=== PATIENT | female | born 1975 | race Caucasian/White ===

== ENCOUNTER → 2018-03-14 12:59 | Outpatient (CLI) | payer MEDICARE, OTHER, SELFPAY ==
--- NOTE | 2018-03-14 13:10 | MM_ITS ---
MM Dig mamm DX unilat LT CAD, US breast LT complete COMPARISON: 10/12/2017, 04/12/2016 INDICATION: Follow-up abnormal mammogram ORDERING PHYSICIAN: Rocio Castillo PATIENT AGE: 42 years TECHNIQUE: Problem-solving views performed along with left breast ultrasound FINDINGS: Present well-circumscribed 12 x 8 mm nodule in the central aspect of the left breast at the 12:00 region corresponding to the abdomen the noted on the screening study. No malignant appearing calcifications or spiculations. Left breast ultrasound: Isoechoic 12 x 7 mm nodule in the left o'clock region of the left breast corresponding to the mammographic abnormality. Probable fibroadenoma IMPRESSION: Probable fibroadenoma 12:00 region of the left breast. Suggest confirmation with biopsy BI-RADS Category: 4 Suspicious Abnormality-Biopsy Considered RECOMMENDED FOLLOW-UP: BIO - BIOPSY RECOMMENDED Suggest ultrasound guided mammotome biopsy (A letter has been sent to the patient regarding results of the study.)
== END ==
PROVIDERS: Family Provider Nurse Practitioner Family; PCP Nurse Practitioner Family; Visit Provider Nurse Practitioner Family
DX: R92.8 Other abnormal and inconclusive findings on diagnostic imaging of breast (principal)
CPT/HCPCS: 76641; 77065

== ENCOUNTER → 2018-05-13 09:39 | Outpatient (CLI) | payer MEDICARE, OTHER, SELFPAY ==
--- NOTE | 2018-05-13 10:04 | US_ITS ---
US mammotome bx LT US breast LT complete, MM Dig mamm DX unilat LT CAD INDICATION: Left breast nodule ORDERING PHYSICIAN: Rocio Castillo PATIENT AGE: 42 years COMPARISON: 03/14/2018 Left breast ultrasound: Left breast ultrasound performed for planning and localization for mammotome biopsy. Solid nodules once again noted at 11:00 near the nipple. TECHNIQUE: Following obtaining informed consent using sonographic guidance with local anesthesia with 1% buffered lidocaine and deeper anesthesia with 1% buffered lidocaine mixed with epinephrine a skin neck was performed and mammotomy needle inserted along the posterior aspect of the nodule. Multiple mammotomy biopsies were obtained . A nonferromagnetic clip was then placed. The patient tolerated the procedure well without evidence of immediate complications and left the radiology suite in stable condition Pathology: Fragments of a fibroadenoma. Negative for atypia or malignancy Left mammogram postbiopsy: Postbiopsy changes with Biopsy clip present in the retroareolar region. Previously noted nodule at the 11:00 region no longer evident with the biopsy clip in this region. IMPRESSION: Successful sonographic guided mammotome biopsy of the left breast showing fibroadenoma BI-RADS Category: 2 Benign Finding(s) RECOMMENDED FOLLOW-UP: 6M - 6 MONTH FOLLOW-UP (A letter has been sent to the patient regarding results of the study.)
== END ==
PROVIDERS: Family Provider Nurse Practitioner Family; PCP Nurse Practitioner Family; Visit Provider Nurse Practitioner Family
DX: R92.8 Other abnormal and inconclusive findings on diagnostic imaging of breast (principal)
CPT/HCPCS: 19083; 76641; 76942; 77065; 88305; C2618

== ENCOUNTER 2023-12-12 23:10 | Outpatient (CLI) | payer MEDICARE, OTHER, SELFPAY | END 2023-12-12 23:59 | PROVIDERS: PCP Family Medicine; Visit Provider Family Medicine | DX: R30.0 Dysuria (principal); B96.29 Other Escherichia coli [E. coli] as the cause of diseases classified elsewhere; B96.89 Other specified bacterial agents as the cause of diseases classified elsewhere | CPT/HCPCS: 87086 ==

== ENCOUNTER 2024-02-13 21:23 | Outpatient (CLI) | payer MEDICARE, OTHER, SELFPAY ==
[2024-02-13 16:38] LABS: Basophils # 0.1 K/mm3 (0-0.2); Basophils % 1.2 % (0.1-2.0); Eosinophils # 0.1 K/mm3 (0.0-0.4); Hematocrit 42.5 % (37.0-47.0); Lymphocytes # 4.4 K/mm3 (0.7-4.5); Lymphocytes % 36.6 % (10-50); Mean Platelet Volume 9.4 fl (7.4-10.4); Monocytes # 0.6 K/mm3 (0.1-1.0); Monocytes % 4.7 % (1.7-9.3); Neutrophils # 6.9 K/mm3 (1.8-7.8); Neutrophils % 56.6 % (37.0-80.0); Platelet Count 308 K/mm3 (142-424); Red Blood Count 4.67 M/mm3 (4.20-5.40); Red Cell Distribution Width 14.4 % (11.5-17.5); White Blood Count 12.1 K/mm3 (4.8-10.8)
[2024-02-13 16:50] LABS: Alanine Aminotransferase 17 U/L (12-78); Albumin/Globulin Ratio 1.6 (1.1-1.8); Alkaline Phosphatase 120 U/L (38-126); Anion Gap 9.4 mEq/L (5-15); Aspartate Amino Transferase 18 U/L (14-36); Bilirubin,Total 0.3 mg/dl (0.2-1.3); Blood Urea Nitrogen 13 mg/dl (7-17); Calcium 9.6 mg/dl (8.4-10.2); Carbon Dioxide 28 mmol/L (22.0-30.0); Chloride 104 mmol/L (98-107); Chol/HDL Ratio 4.1 (1-3.5); Cholesterol 167 mg/dl (140-200); Estimated Glomerular Filt Rate 89 ml/min (>60); GFR (African American) 107 ML/MIN (>60); Globulin 2.5 g/dL (1.3-3.2); Glucose 143 mg/dl (74-100); HDL Cholesterol 41 mg/dl (40-60); Potassium 4.4 mmoL/L (3.5-5.1); Sodium 137 mmol/L (136-145); Total Protein,Serum 6.5 g/dl (6.3-8.2); Triglycerides 168 mg/dl (30-150); VLDL Cholesterol 34 mg/dL (0-40)
[2024-02-13 17:01] LABS: Direct LDL Cholesterol 90.22 mg/dL (100-129)
[2024-02-13 17:45] LABS: Hemoglobin A1C 10.6 % (4.0-6.0)
== END 2024-02-13 23:59 ==
LOC: LAB.DROPOF 21:24
PROVIDERS: PCP Family Medicine; Visit Provider Family Medicine
DX: E11.9 Type 2 diabetes mellitus without complications (principal); I10 Essential (primary) hypertension; Z79.4 Long term (current) use of insulin; Z79.85 Long-term (current) use of injectable non-insulin antidiabetic drugs; Z72.0 Tobacco use
CPT/HCPCS: 80053; 80061; 83036; 84443; 85025

== ENCOUNTER 2024-07-17 13:41 | Outpatient (CLI) | payer MEDICARE, OTHER, SELFPAY ==
--- NOTE | 2024-07-17 13:46 | MM_ITS ---
PROCEDURE INFORMATION: Exam: MG Bilateral Screening 3D Mammography Exam date and time: 07/17/2024 1:51 PM Age: 48 years old Clinical indication: Screening. Her sister had breast cancer at age 40. TECHNIQUE: Imaging protocol: Bilateral Screening tomosynthesis and 2D mammography including computer-aided detection (CAD) when performed. COMPARISON: 1. MG DXLT MM Dig mamm DX unilat LT CAD 05/13/2018 11:42 AM 2. MG DXLT MM Dig mamm DX unilat LT CAD 03/14/2018 1:35 PM 3. MG MM MOBILE MAMMO DIGITAL SCREEN W CAD OPAL 10/12/2017 9:46 AM 4. MG DMSB DIG MAMM-SCREEN OPAL 04/12/2016 10:26 AM FINDINGS: MAMMOGRAPHY: Breast composition: There are scattered areas of fibroglandular density. Mass: No suspicious mass. Architectural distortion: None. Calcifications: No suspicious calcifications. Asymmetric density: None. Skin thickening: None. Axillary adenopathy: None. IMPRESSION: No mammographic evidence of malignancy. Annual screening is recommended unless otherwise clinically indicated. ASSESSMENT: BI-RADS Category 1: Negative.
== END 2024-07-17 23:59 | disposition home or self-care (01) ==
LOC: RAD 13:43
PROVIDERS: PCP Family Medicine; Visit Provider Family Medicine
DX: Z12.31 Encounter for screening mammogram for malignant neoplasm of breast (principal)
CPT/HCPCS: 77063; 77067

== ENCOUNTER 2024-12-07 09:00 | Outpatient (CLI) | payer MEDICARE, OTHER, SELFPAY ==
[2024-12-07 16:33] LABS: Basophils # 0.1 K/mm3 (0-0.2); Basophils % 0.5 % (0.1-2.0); Eosinophils # 0.1 K/mm3 (0.0-0.4); Eosinophils % 1.1 % (0.1-12.0); Hematocrit 44.4 % (37.0-47.0); Hemoglobin 14.2 g/dL (12.2-16.2); Lymphocytes % 37.9 % (10-50); Mean Corpuscular Hemoglobin 28.1 pg (27.0-31.2); Mean Corpuscular Volume 87.7 fl (81-99); Mean Platelet Volume 11.4 fl (7.4-10.4); Monocytes # 0.5 K/mm3 (0.1-1.0); Monocytes % 4.7 % (1.7-9.3); Neutrophils # 5.8 K/mm3 (1.8-7.8); Neutrophils % 55.2 % (37.0-80.0); Platelet Count 272 K/mm3 (142-424); Red Blood Count 5.06 M/mm3 (4.20-5.40); Red Cell Distribution Width 13.7 % (11.5-17.5); White Blood Count 10.6 K/mm3 (4.8-10.8)
[2024-12-07 17:42] LABS: Chloride 102 mmol/L (98-107); Sodium 138 mmol/L (136-145)
[2024-12-07 17:43] LABS: Potassium 4.1 mmoL/L (3.5-5.1)
[2024-12-07 17:45] LABS: Alanine Aminotransferase 23 U/L (12-78); Albumin/Globulin Ratio 1.7 (1.1-1.8); Alkaline Phosphatase 173 U/L (38-126); Anion Gap 16.1 mEq/L (5-15); Aspartate Amino Transferase 18 U/L (14-36); Bilirubin,Total 0.2 mg/dl (0.2-1.3); Blood Urea Nitrogen 17 mg/dl (7-17); Carbon Dioxide 24 mmol/L (22.0-30.0); Cholesterol 210 mg/dl (140-200); Estimated Glomerular Filt Rate 105 ml/min (>60); GFR (African American) 128 ML/MIN (>60); Globulin 2.4 g/dL (1.3-3.2); Total Protein,Serum 6.4 g/dl (6.3-8.2); Triglycerides 299 mg/dl (30-150); VLDL Cholesterol 60 mg/dL (0-40)
[2024-12-07 17:46] LABS: Calcium 9.1 mg/dl (8.4-10.2); Chol/HDL Ratio 6.6 (1-3.5); Glucose 293 mg/dl (74-100); HDL Cholesterol 32 mg/dl (40-60)
[2024-12-07 17:59] LABS: Direct LDL Cholesterol 135.45 mg/dL (100-129)
[2024-12-07 18:20] LABS: Thyroid Stimulating Hormone 3.85 uIU/mL (0.465-4.68)
[2024-12-07 18:29] LABS: HIV Combo NEGATIVE (Negative)
[2024-12-07 18:35] LABS: Hepatitis C Ab Qual. W/ RFX NEGATIVE (Negative)
== END 2024-12-07 23:59 | disposition home or self-care (01) ==
LOC: LAB.DROPOF 12-08 09:03
PROVIDERS: PCP Family Medicine; Visit Provider Family Medicine
DX: E11.9 Type 2 diabetes mellitus without complications (principal); I10 Essential (primary) hypertension; Z11.59 Encounter for screening for other viral diseases; Z11.4 Encounter for screening for human immunodeficiency virus [HIV]
CPT/HCPCS: 80053; 80061; 83036; 84443; 85025; 86803; 87389

== ENCOUNTER 2024-12-24 00:21 | Emergency (ER) | payer MEDICARE, OTHER, SELFPAY ==
[2024-12-24 00:21] VITALS: BP 134/60; PULSE 94; RESP 18; TEMP 36.6; O2SAT 97; BMI 31.1
--- NOTE | 2024-12-24 00:30 | PC.NURSE ---
blood glucose reads HI
[2024-12-24] MEDS: LACTATED RINGERS 1000ML 1,000 ML 999 ML IV (00:59)
[2024-12-24 01:00] VITALS: BP 122/63; PULSE 82; O2SAT 95
[2024-12-24] MEDS: humaLOG 100 UNITS/ML 10ML VIAL (SSI) 20 UNIT SUBCUT (01:02)
[2024-12-24 01:07] LABS: Lactate Venous 1.6 mmol/L (0.4-2.0); VBG Base Excess -1.7 mmol/L (-2.4-2.3); VBG HCO3 24.1 mmol/L (23-30); VBG Oxygen Saturation 61.9 % (50-70); VBG PH 7.34 mmol/L (7.31-7.41); VBG PO2 30.6 mmol/L (28-40); VBG Total CO2 25.5 mmol/L (23-27)
[2024-12-24 01:12] LABS: Basophils # 0.1 K/mm3 (0-0.2); Basophils % 0.5 % (0.1-2.0); Eosinophils # 0.2 K/mm3 (0.0-0.4); Eosinophils % 1.5 % (0.1-12.0); Hematocrit 43.2 % (37.0-47.0); Hemoglobin 14.3 g/dL (12.2-16.2); Lymphocytes # 2.9 K/mm3 (0.7-4.5); Lymphocytes % 27.9 % (10-50); Mean Corpuscular HGB Conc 33.1 g/dL (31.8-35.4); Mean Corpuscular Hemoglobin 27.9 pg (27.0-31.2); Mean Corpuscular Volume 84.2 fl (81-99); Mean Platelet Volume 11.5 fl (7.4-10.4); Monocytes # 0.5 K/mm3 (0.1-1.0); Monocytes % 4.6 % (1.7-9.3); Neutrophils # 6.7 K/mm3 (1.8-7.8); Platelet Count 291 K/mm3 (142-424); Red Blood Count 5.13 M/mm3 (4.20-5.40); Red Cell Distribution Width 13.1 % (11.5-17.5); White Blood Count 10.3 K/mm3 (4.8-10.8)
[2024-12-24 01:15] VITALS: PULSE 81; O2SAT 94
[2024-12-24 01:19] LABS: Alanine Aminotransferase 31 U/L (12-78); Albumin Level 4.5 g/dl (3.5-5.0); Albumin/Globulin Ratio 1.7 (1.1-1.8); Alkaline Phosphatase 161 U/L (38-126); Anion Gap 15.7 mEq/L (5-15); Aspartate Amino Transferase 25 U/L (14-36); Bilirubin,Total 0.4 mg/dl (0.2-1.3); Blood Urea Nitrogen 16 mg/dl (7-17); Calcium 9.2 mg/dl (8.4-10.2); Carbon Dioxide 29 mmol/L (22.0-30.0); Chloride 93 mmol/L (98-107); Creatinine Clearance Estimated 81 mL/min (50-200); Estimated Glomerular Filt Rate 58 ml/min (>60); GFR (African American) 71 ML/MIN (>60); Globulin 2.6 g/dL (1.3-3.2); Lipase 532 U/L (23-300); Potassium 4.7 mmoL/L (3.5-5.1); Sodium 133 mmol/L (136-145); Total Protein,Serum 7.1 g/dl (6.3-8.2)
[2024-12-24 01:25] LABS: Microscopic, Urine URINE MICROSCOPIC (MICROSCOPIC)
--- NOTE | 2024-12-24 01:29 | HMH.EDGENADL ---
Discharge Plan Disposition Patient Disposition: Home, Self-Care Condition: Good Prescriptions Prescriptions: No Action cholecalciferol (vitamin D3) [Vitamin D3] 50 mcg (2,000 unit) capsule 50 mcg PO DAILY 30 Days Qty: 30 2RF fluoxetine 20 mg capsule 20 mg PO DAILY Qty: 30 2RF fluoxetine 40 mg capsule 40 mg PO DAILY Qty: 30 2RF ipratropium-albuterol 0.5 mg-3 mg(2.5 mg base)/3 mL solution for nebulization 3 ml inhalation Q8H PRN (Reason: COPD) 30 Days Qty: 90 2RF lisinopril-hydrochlorothiazide 10-12.5 mg tablet 1 tab PO DAILY 30 Days Qty: 30 2RF pantoprazole 40 mg tablet,delayed release (DR/EC) 40 mg PO DAILY Qty: 30 2RF rosuvastatin 40 mg tablet 40 mg PO DAILY Qty: 30 2RF Ozempic 1 mg/dose (4 mg/3 mL) pen injector 1 mg SQ WEEKLY Qty: 3 2RF (DME) Dexcom G7 Sensor Device See Rx Instructions .ROUTE .MEDSUPPLY Qty: 1 3RF Rx Instructions: As directed (DME) pen needle, diabetic [BD Ultra-Fine Mini Pen Needle] 31 gauge x 3/16 needle See Rx Instructions .ROUTE .COMPLEX Qty: 100 0RF Dose Instruction: USE TO INJECT INSULIN 3 TIMES EACH DAY DIRECTED Rx Instructions: USE TO INJECT INSULIN 3 TIMES EACH DAY DIRECTED alcohol swabs [Alcohol Prep Pads] Pads, Medicated 1 pad topical BID 30 Days Qty: 100 0RF mirtazapine 7.5 mg tablet 7.5 mg PO HS Qty: 30 0RF methocarbamol 750 mg tablet 750 mg PO TID Qty: 90 0RF insulin aspart U-100 [Novolog PenFill U-100 Insulin] 100 unit/mL cartridge 20 unit SQ BID Qty: 15 2RF levothyroxine 25 mcg tablet 25 mcg PO DAILY 30 Days Qty: 30 2RF insulin glargine [Lantus Solostar U-100 Insulin] 100 unit/mL (3 mL) insulin pen 40 unit SQ DAILY Qty: 15 2RF Referrals Follow up/Referrals: Tavo Lowry MD [Primary Care Provider] - See instructions (Please recheck patient FRANSICO for blood sugar, please also prescribe her lancets and glucometer since she has experienced Dexcom failure that landed her in the ER. Please also recheck lipase, it was elevated in the ER but patient was asymptomatic. Thank you!) Activity Restrictions/Add. Instructions Additional Instructions/Restrictions: You were evaluated in the ER and are appropriate for discharge at this time. When you get home, immediately change your Dexcom sensor and check your blood sugar. It should be close to what it most recently was in the ER. Manage your blood sugar according to recommendations from your primary care doctor. Call your primary care doctor first thing in the morning and make an appointment for immediate reevaluation. Ask him to prescribe you lancets and a glucometer to check your blood sugar at home in case your Dexcom ever fails again. Also ask him to recheck your pancreas since your enzyme was elevated. Return to the ER with new, worsening, or otherwise concerning symptoms. Clinical Impressions Clinical Impression: Hyperglycemia, Elevated lipase Print Language Print Language: [place] Discharge ED Provider: Chayo Vigil Adult HPI General Chief complaint: Recheck/Abnormal Lab/Rx Stated complaint: low blood sugar Time Seen by Provider: 12/24/24 00:35 Mode of Arrival: Ambulatory Source of Information: Patient Limitations: No Limitations Description of Symptoms (Recalled from ER Triage Doc. by RN): Patient reports her dexcom has been saying low since 2.2:30am. States she has been treating this with jelly, food etc at home. States it was 43 at 2200. However, upon checking a glucose at bedside on our monitor patients BG reads high . History of Present Illness HPI narrative: 49-year-old female with type 2 diabetes on insulin as well as history of COPD, hypertension, fibromyalgia presents to the ER for complaints of low blood sugar. Patient reports she has a Dexcom and that her unit was placed 2 days ago. She states since 2:30 AM on 12/23/2024 it has been reading low . She states she has been eating sugary foods at home including juice, jelly, etc. She states at 10 PM her Dexcom said her blood sugar was 43. She does not have any symptoms like lightheadedness, headache, numbness, tingling, weakness, chest pain, difficulty breathing, cough, congestion, nausea, vomiting, diarrhea, fevers, chills, dysuria, hematuria, or any other symptoms. She states she feels normal but is concerned about the low readings at home. On arrival to the ER, fingerstick blood glucose reads high . Patient reports she does not have lancets or glucometer at home so she is unable to confirm what her Dexcom says. She states typically she would take 60 units of Lantus every evening and typically takes 20 units of NovoLog if needed for correction of glucose above 300. She has not taken any insulin since her Dexcom started reading low. She has not experienced this previously. She reports no feelings of being sick or associated symptoms Related Data Previous Rx's ?Medication ?Instructions ?Recorded insulin aspart U-100 100 unit/mL 20 unit (0.2 mL) SQ BID #15 mL 03/23/24 subcutaneous cartridge (Novolog PenFill U-100 Insulin aspart) levothyroxine 25 mcg tablet 25 mcg PO DAILY hypothyroidism 30 08/05/24 days #30 tabs alcohol swabs (Alcohol Prep Pads) 1 pad topical BID 30 days #100 ea 12/07/24 blood-glucose sensor (Dexcom G7 #1 ea 12/07/24 Sensor device) cholecalciferol (vitamin D3) 50 50 mcg PO DAILY 30 days #30 caps 12/07/24 mcg (2,000 unit) capsule (Vitamin D3) fluoxetine 20 mg capsule 20 mg PO DAILY #30 caps 12/07/24 fluoxetine 40 mg capsule 40 mg PO DAILY Depression #30 caps 12/07/24 insulin glargine 100 unit/mL (3 40 unit (0.4 mL) SQ DAILY Diabetes 12/07/24 mL) subcutaneous pen (Lantus #15 mL Solostar U-100 Insulin) ipratropium 0.5 mg-albuterol 3 mg 3 ml inhalation Q8H PRN COPD 30 12/07/24 (2.5 mg base)/3 mL nebulization days #90 mL soln lisinopril 10 1 tab PO DAILY HTN 30 days #30 tabs 12/07/24 mg-hydrochlorothiazide 12.5 mg tablet methocarbamol 750 mg tablet 750 mg PO TID fibromyalgia #90 tabs 12/07/24 mirtazapine 7.5 mg tablet 7.5 mg PO HS sleep #30 tabs 12/07/24 pantoprazole 40 mg tablet,delayed 40 mg PO DAILY GERD #30 tabs 12/07/24 release pen needle, diabetic 31 gauge x #100 ea 12/07/24/16 (BD Ultra-Fine Mini Pen Needle) rosuvastatin 40 mg tablet 40 mg PO DAILY hyperlipidemia #30 12/07/24 tabs semaglutide 1 mg/dose (4 mg/3 mL) 1 mg (0.75 mL) SQ WEEKLY #3 mL 12/07/24 subcutaneous pen injector (Ozempic) Allergies Allergy/AdvReac Type Severity Reaction Status Date / Time No Known Allergies Allergy Verified 12/07/24 08:33 [facility] Disclaimer: The information contained in this section may have been updated after the patient was seen, as this information can be updated by other users. Medical History Depression COPD (chronic obstructive pulmonary disease) Fibromyalgia Hyperlipidemia Hypertension Surgical History H/O hand surgery Family History Grandfather Cancer Father Diabetes Grandmother Coronary artery disease Heart attack Social History Smoking Status: Current every day smoker alcohol intake: never substance use type: marijuana current occupational status: disabled Travel in the last 8 weeks: Inside the [place] household members: spouse and children housing: house Have you lived/traveled outside [place] in past 30 days?: No Contact w/someone who lives/traveled outside US past 30 days?: No Exposure to someone with infectious disease in past 14 days?: No Do you have a fever (greater than 100.4 F or 38 C)?: No Have you tested positive for COVID-19: No Exposed to someone with COVID-19 in past 14 days?: No Do you have a sore throat?: No Do you have a cough?: No Do you have any weakness?: No Do you have any diarrhea?: No Are you experiencing any unusual bleeding?: No Do you have any muscle aches/pain?: No Do you have any abdominal pain?: No Are you experiencing loss of taste or smell?: No Other Medical History Have you received the Pneumonia Vaccine: No ROS Obtained: Yes Systems reviewed as appropriate & no additional complaints except as documented Per HPI Physical Exam General General appearance: alert and in no apparent distress Head Head exam: atraumatic and normocephalic Eye Eye exam: Present PERRL and EOMI ENT ENT exam: Present mucous membranes moist Neck Neck exam: Present normal inspection and full ROM Chest Chest inspection: Present symmetric chest wall rise Respiratory Respiratory exam: Present normal lung sounds bilaterally; Absent respiratory distress, wheezes or stridor Cardiovascular Cardiovascular exam: Present regular rate and normal rhythm Abdominal Exam Abdominal exam: Present soft; Absent distention, tenderness, guarding or rebound Comment: Benign abdomen Extremities Exam Extremities exam: Present full ROM; Absent edema Neurological Exam Neurological exam: Present alert and oriented X3; Absent motor sensory deficit Psychiatric Psychiatric exam: Present normal affect and normal mood Skin Skin exam: Present warm and dry Medical Decision Making Medical Records Medical records reviewed: Yes I reviewed the patient's medical records. Screening: Per USPSTF and CDC recommendations, given the prevalence of disease in our region, it is our hospital?s policy to screen for HIV and viral Hepatitis for all patients aged 18 and over and those with ongoing risk factors. MR Comment: Most recent visit with Dr. Lowry on 12/07/2024 was reviewed by me. She reportedly presented for medication refill. He ordered basic outpatient labs and refilled home meds. A1c at that time was 12.0 and blood glucose 293. Basilio Inquiry Pt receiving controlled substance: No Vital Signs: 12/24/24 00:21 12/24/24 01:00 12/24/24 01:15 Temperature 97.9 F Temperature Source Oral Pulse Rate 82 81 Pulse Rate [Right Radial] 94 H Respiratory Rate 18 Blood Pressure 122/63 Blood Pressure [Right Arm] 134/60 Blood Pressure Mean [Right Arm] 84 Blood Pressure Source Blood Pressure Source [Right Arm] Automatic Cuff Blood Pressure Position Blood Pressure Position [Right Arm] Supine 02 Sat by Pulse Oximetry 97 95 94 L Oxygen Delivery Method Room Air 12/24/24 02:01 12/24/24 02:14 Temperature 97.9 F Temperature Source Oral Pulse Rate 83 72 Pulse Rate [Right Radial] Respiratory Rate 16 Blood Pressure 122/64 120/88 Blood Pressure [Right Arm] Blood Pressure Mean [Right Arm] Blood Pressure Source Automatic Cuff Blood Pressure Source [Right Arm] Blood Pressure Position Supine Blood Pressure Position [Right Arm] 02 Sat by Pulse Oximetry 99 Oxygen Delivery Method Room Air Lab Data Lab Results 12/24/24 00:56: WBC 10.3, RBC 5.13, Hgb 14.3, Hct 43.2, MCV 84.2, MCH 27.9, MCHC 33.1, RDW 13.1, Plt Count 291, MPV 11.5 H, Neut % (Auto) 65.0, Lymph % (Auto) 27.9, [place] % (Auto) 4.6, Eos % (Auto) 1.5, Baso % (Auto) 0.5, Neut # (Auto) 6.7, Lymph # (Auto) 2.9, [place] # (Auto) 0.5, Eos # (Auto) 0.2, Baso # (Auto) 0.1, Sodium 133 L, Potassium 4.7, Chloride 93 L, Carbon Dioxide 29, Anion Gap 15.7 H, BUN 16, Creatinine 1.00, Estimated Creat Clear 81, Estimated GFR 58 L, Est GFR ( Amer) 71, Glucose 620 H*, Calcium 9.2, Total Bilirubin 0.4, AST 25, ALT 31, Alkaline Phosphatase 161 H, Total Protein 7.1, Albumin 4.5, Globulin 2.6, Albumin/Globulin Ratio 1.7, Lipase 532 H, Acetone Level None detected 12/24/24 01:07: VBG pH 7.34, VBG pCO2 46.0, VBG pO2 30.6, VBG HCO3 24.1, VBG Total CO2 25.5, VBG O2 Saturation 61.9, VBG Base Excess -1.7, VBG Lactic Acid 1.6 12/24/24 01:20: Urine Color Yellow, Urine Appearance Clear, Urine pH 6.0, Ur Specific [place] 1.010, Urine Protein Negative, Urine Glucose (UA) 3+, Urine Ketones Negative, Urine Blood Negative, Urine Nitrate Negative, Urine Bilirubin Negative, Urine Urobilinogen 0.2, Ur Leukocyte Esterase Negative, Urine WBC Occasional, Ur Squamous Epith Cells Occasional, Urine Bacteria Trace 12/24/24 00:56 12/24/24 00:56 Orders (Tests/Meds): ED MEDICATIONS Discontinued Medications Generic Name Dose Route Start Last Admin Trade Name Freq PRN Reason Stop Dose Admin Lactated Ringer's 1,000 mls @ 999 mls/hr 12/24/24 00:43 12/24/24 00:59 Lactated Ringer's 1000 Ml Bag IV 12/24/24 01:43 999 mls/hr .Q1H1M ONE Administration Insulin Glargine 60 unit 12/24/24 21:00 Insulin Glargine 100 Units/Ml 10ml Vial SUBCUT 01/23/25 20:59 HS HECTOR Insulin Glargine 60 unit 12/24/24 01:29 12/24/24 01:31 Insulin Glargine 100 Units/Ml 10ml Vial SUBCUT 12/24/24 01:30 60 unit ONCE ONE Administration Insulin Human Lispro 20 unit 12/24/24 00:56 12/24/24 01:02 Humalog 100 Units/Ml 10ml Vial (Ssi) SUBCUT 12/24/24 00:57 20 unit ONCE ONE Administration ORDERS Category Date Time Status Acetone, Serum (Rapid) Stat Lab 12/24/24 00:56 Completed CBC w/Auto Diff [Complete Blood Count Auto Diff] Stat Lab 12/24/24 00:56 Completed CMP [Comprehensive Metabolic Panel] Stat Lab 12/24/24 00:56 Completed Lipase Stat Lab 12/24/24 00:56 Completed Urinalysis and Microscopic Stat Lab 12/24/24 01:20 Completed VBG [Venous Blood Gas] Stat RT 12/24/24 01:07 Completed Medical Decision Narrative: In summary, this 49-year-old female with comorbidities described in the HPI most notably type 2 diabetes not at goal therapy presents to the emergency department today with concerns of hypoglycemia. On initial evaluation patient is hemodynamically stable, afebrile, well-appearing, she is actually significantly hyperglycemic with initial fingerstick blood glucose in the ER reading high . She has a completely benign exam with no complaints other than concerned about her Dexcom readings.. Differential diagnosis includes but is not limited to Dexcom failure, hypoglycemia, hyperglycemia, other metabolic derangement including acidosis, DKA, HHS, kidney dysfunction, urinary tract infection, pancreatitis. Based on these concerns, I ordered serum labs, urine studies, VBG. Patient received IV fluids, Lantus, NovoLog initial for treatment of hyperglycemia. Labs personally reviewed demonstrate reassuring nonactionable CBC, VBG with pH 7.34, lactic on VBG 1.6, her VBG is normal. CMP with hyponatremia likely related to her significant hyperglycemia, patient is receiving IV fluids and insulin as indicated, she has trace elevation of anion gap but no acidosis on VBG and her acetone is not detected, she does not have evidence of DKA, reassured against HHS since patient does not have altered mental status, BUN and creatinine are normal, no evidence of volume depletion, her lipase is elevated at 532 which would typically be concerning for pancreatitis, however patient does not have any pain, nausea, vomiting, or other abdominal symptoms. UA negative for findings of infection. After receiving initial interventions, patient is having improved blood glucose. Recheck initially was 554. Recheck approximately 30 minutes after that demonstrated blood glucose 501. She is downtrending appropriately. She continues to rest comfortably, be asymptomatic. I discussed her labs with her and she is reassured. She would like to be discharged which I believe is reasonable. I discussed that it is very important for her to continue to drink fluids at home and to immediately exchange her Dexcom sensor when she gets home. She is going to do this and monitor her sugar this way. I explained to her that she needs to call her primary care doctor immediately in the morning for follow-up of her pancreatic enzymes as well as to recheck labs and reassess her pancreas as well as be prescribed lancets and glucometer to verify her Dexcom readings if they are significantly out of range. She agrees with this. I also sent a note to Dr. Lowry, her PCP, via the EHR regarding these things. Patient was given instructions on symptomatic monitoring and management, follow up instructions, and return precautions for the emergency department. Patient indicated understanding and was discharged in stable condition. Critical Care Critical Care Time Critical Care Time: No
[2024-12-24 01:30] LABS: Appearance,Urine CLEAR (Clear); Bilirubin,Urine Negative (Negative); Blood, Urine Negative (Negative); Color,Urine YELLOW (Yellow); Glucose,Urine (UA) 3+ (Negative); Ketones,Urine Negative (Negative); Leukocyte Esterase,Urine Negative (Negative); Nitrate,Urine Negative (Negative); Protein,Urine Negative (Negative); Urobilinogen,Urine 0.2 EU/dl (0.2)
[2024-12-24 01:31] LABS: Glucose 620 mg/dl (74-100)
[2024-12-24] MEDS: INSULIN GLARGINE 100 UNITS/ML 10ML VIAL 60 UNIT SUBCUT (01:31)
--- NOTE | 2024-12-24 01:32 | PC.NURSE ---
lab called with critical glucose of 620
[2024-12-24 01:38] LABS: Acetone, Serum (Rapid) None Detected (None Detect)
--- NOTE | 2024-12-24 01:46 | PC.NURSE ---
Patients glucose 554
[2024-12-24 01:48] LABS: Bacteria,Urine Trace /lpf; Squamous Epithelial Cell,Urine Occasional #/hpf (0-5); WBC,Urine Occasional #/hpf (0-3)
[2024-12-24 02:01] VITALS: BP 122/64; PULSE 83; O2SAT 99
--- NOTE | 2024-12-24 02:09 | PC.NURSE ---
Patient glucose 501; notified
--- NOTE | 2024-12-24 02:09 | PC.NURSE ---
Rounding done on patient; resting
[2024-12-24 02:14] VITALS: BP 120/88; PULSE 72; RESP 16; TEMP 36.6; O2SAT 98
== END 2024-12-24 02:18 | disposition home or self-care (01) ==
PROVIDERS: Emergency Provider Emergency Medicine; PCP Family Medicine
DX: E11.65 Type 2 diabetes mellitus with hyperglycemia (principal); R74.8 Abnormal levels of other serum enzymes; Z72.0 Tobacco use; Z79.4 Long term (current) use of insulin
CPT/HCPCS: 80053; 81001; 82009; 82803; 83690; 85025; 96360; 96361; 96372; 99283; J7120

== ENCOUNTER 2025-01-07 15:42 | Outpatient (CLI) | payer MEDICARE, SELFPAY ==
[2025-01-07 19:36] LABS: Lipase 867 U/L (23-300)
== END 2025-01-07 23:59 | disposition home or self-care (01) ==
LOC: LAB.DROPOF 01-08 13:35
PROVIDERS: PCP Family Medicine; Visit Provider Family Medicine
DX: R74.8 Abnormal levels of other serum enzymes (principal)
CPT/HCPCS: 83690

== ENCOUNTER 2025-04-02 10:41 | Outpatient (CLI) | payer MEDICARE, SELFPAY ==
[2025-04-02 16:36] LABS: Basophils # 0.1 K/mm3 (0-0.2); Basophils % 0.6 % (0.1-2.0); Eosinophils # 0.2 Kmm3 (0.0-0.4); Eosinophils % 1.6 % (0.1-12.0); Hematocrit 44.1 % (37.0-47.0); Hemoglobin 13.7 g/dL (12.2-16.2); Immature Granulocytes # 0.04 10^3uL; Immature Granulocytes % 0.4 %; Lymphocytes # 4.8 K/mm3 (0.7-4.5); Lymphocytes % 46.9 % (10-50); Mean Corpuscular HGB Conc 31.1 g/dL (31.8-35.4); Mean Corpuscular Hemoglobin 27.5 pg (27.0-31.2); Mean Corpuscular Volume 88.4 fl (81-99); Monocytes # 0.6 K/mm3 (0.1-1.0); Monocytes % 5.5 % (1.7-9.3); Neutrophils # 4.6 K/mm3 (1.8-7.8); Nucleated Red Blood Cells # 0 10^3/uL; Nucleated Red Blood Cells % 0 %; Platelet Count 255 K/mm3 (142-424); Red Blood Count 4.99 M/mm3 (4.20-5.40); Red Cell Distribution Width 13.9 % (11.5-17.5); Red Cell Distribution Width-SD 44.1 fL; White Blood Count 10.3 K/mm3 (4.8-10.8)
[2025-04-02 16:54] LABS: Microalbumin/Creatinine Ratio 57.7
[2025-04-02 16:56] LABS: Creatinine,Urine Random 101 mg/dL (Not Estab.)
[2025-04-02 17:09] LABS: Hemoglobin A1C 12.6 % (4.0-6.0)
[2025-04-02 17:22] LABS: Alanine Aminotransferase 16 U/L (12-78); Albumin Level 3.9 g/dl (3.5-5.0); Albumin/Globulin Ratio 1.8 (1.1-1.8); Alkaline Phosphatase 116 U/L (38-126); Amylase 58 U/L (30-110); Anion Gap 9.7 mEq/L (5-15); Aspartate Amino Transferase 16 U/L (14-36); Bilirubin,Total 0.3 mg/dl (0.2-1.3); Blood Urea Nitrogen 10 mg/dl (7-17); Calcium 8.9 mg/dl (8.4-10.2); Carbon Dioxide 27 mmol/L (22.0-30.0); Chloride 107 mmol/L (98-107); Cholesterol 148 mg/dl (140-200); Estimated Glomerular Filt Rate 130 ml/min (>60); GFR (African American) 157 ML/MIN (>60); Globulin 2.2 g/dL (1.3-3.2); Glucose 166 mg/dl (74-100); HDL Cholesterol 37 mg/dl (40-60); Lipase 141 U/L (23-300); Potassium 3.7 mmoL/L (3.5-5.1); Sodium 140 mmol/L (136-145); Total Protein,Serum 6.1 g/dl (6.3-8.2); Triglycerides 204 mg/dl (30-150); VLDL Cholesterol 41 mg/dL (0-40)
[2025-04-02 17:33] LABS: Direct LDL Cholesterol 86.94 mg/dL (100-129)
[2025-04-02 17:41] LABS: 25-OH Vitamin D, Total 16.8 ng/mL (30-100)
[2025-04-02 17:52] LABS: Thyroid Stimulating Hormone 0.95 uIU/mL (0.465-4.68)
--- OUTSIDE RECORDS SUMMARY | 2025-04-06 10:44 | XMS_ITS | Data Portability ---
Author Organization [facility] Address [address] [place] [address] Care Team Providers Care Painter Drum Name Role Phone ASHLEY DIETZ Primary Care Provider Assessment No assessment recorded. Plan of Treatment Reminders Order Date Submit Date Provider Last Modified By Organization Details Last Modified Time Details Appointments None recorded. Lab drug screen, 14 drugs (detectimed ), urine 2022 023 [facility], [address] [place] [address], [id number], 3 19:08:10 HbA1c (hemoglobin A1c), blood 2022 023 [facility], [address] [place] [address], [address], 3 07:13:40 CMP, serum or plasma 2022 023 [facility], [address] [place], [address], 3 07:13:39 CBC w/ auto diff 2022 023 [facility], [address] [place] [address], [id number], 3 07:13:38 lipid panel, [facility], [address] [place] [address], [address], 3 07:06:02 CMP, serum or plasma 2022 023 [email or web address] [facility], [place], [address], 3 07:06:02 CBC w/ auto diff 2022 023 [email or web address] [facility], [place], [address], 3 07:06:02 HbA1c (hemoglobin A1c), blood 2022 023 [email or web address] [facility], [place], [address], 3 07:06:02 TSH + free T4, serum 2022 023 [email or web address] [facility], [place], [address], 3 07:06:02 vitamin B12, serum 2022 023 [facility], [place], [address], 3 07:12:25 mma (methylmalo jacy acid), serum 2022 023 [email or web address], [place], [address], 3 07:20:07 vitamin D, 25-hydroxy, total, serum 2022 023 [facility], [place], [address], 3 07:12:24 CMP, serum or plasma 2022 023 [facility], [place], [address], 3 07:12:23 CBC w/ auto diff 2022 023 FRAKNI [facility], [place], [address], 3 07:12:22 HbA1c (hemoglobin A1c), blood 2022 023 [facility], [address] [place] [address], [address], 3 07:12:24 vitamin D, 25-hydroxy, total, serum 2022 023 [facility], [address] [place] [address], [address], 3 06:15:17 CMP, serum or plasma 2022 023 [facility], [address] [place] [address], [address], 3 06:15:15 CBC w/ auto diff 2022 023 [facility], [address] [place] [address], [address], 3 06:15:14 HbA1c (hemoglobin A1c), blood 2022 023 [facility], [address] [place] [address], [address], 3 06:15:16 Referral None recorded. Procedures None recorded. Surgeries None recorded. Imaging MAMMO, diagnostic, digital, bilateral 2022 023 [email or web address] [facility] ([facility]), [address], [place], [address], 3 07:56:38 Medication Orders zolpidem 10 mg tablet 2022 023 [facility], [address] [place] [address], [id number], 3 14:16:05 amitriptyli ne 50 mg tablet 2022 023 [facility], [address] [place] [address], [id number], 3 14:15:58 Lantus Solostar U-100 Insulin 100 unit/mL (3 mL) subcutaneou s pen 2022 023 [facility], [address] [place] [address], [id number], 3 14:16:06 Novolin 70-30 FlexPen U-100 Insulin 100 unit/mL (70-30) subcutaneou s 2022 023 [facility], [address] [place] [address], [id number], 3 12:59:39 Ozempic 1 mg/dose (4 mg/3 mL) subcutaneou s pen injector 2022 023 [facility], [address] [place] [address], [id number], 4 16:22:57 BD Alcohol Swabs 2022 023 [facility], [address] [place] [address], [id number], 4 13:44:55 pregabalin 200 mg capsule 2022 023 [facility], [address] [place] [address], [id number], 3 14:16:04 pantoprazol e 40 mg tablet,tete yed release 2022 023 [facility], [address] [place] [address], [id number], 3 14:16:05 rosuvastati n 40 mg tablet 2022 023 [facility], [address] [place] [address], [id number], 3 14:15:59 zolpidem 10 mg tablet 2022 023 [facility], [address] [place] [address], [id number], 3 17:34:49 amitriptyli ne 50 mg tablet 2022 023 [facility], [address] [place] [address], [id number], 3 12:42:43 pregabalin 200 mg capsule 2022 023 [facility], [address] [place] [address], [id number], 3 17:34:48 Mounjaro 2.5 mg/0.5 mL subcutaneou s pen injector 2022 023 [facility], [address] [place] [address], [id number], 3 17:02:03 Lantus Solostar U-100 Insulin 100 unit/mL (3 mL) subcutaneou s pen 2022 023 [facility], [address] [place] [address], [id number], 3 12:42:53 ipratropium 0.5 mg-albutero l 3 mg (2.5 mg base)/3 mL nebulizatio n soln 2022 023 [facility], [address] [place] [address], [id number], 3 16:50:41 bupropion HCl XL 150 mg 24 hr tablet, extended release 2022 023 [facility], [address] [place] [address], [id number], 3 14:16:04 fluoxetine 40 mg capsule 2022 023 [facility], [address] [place] [address], [id number], 3 14:16:00 fluoxetine 20 mg capsule 2022 023 [facility], [address] [place] [address], [id number], 3 12:42:51 Vraylar 1.5 mg capsule 2022 023 [facility], [address] [place] [address], [id number], 3 12:42:49 ergocalcife rol (vitamin D2) 1,250 mcg (50,000 unit) capsule 2022 023 [facility], [address] [place] [address], [id number], 3 14:16:09 lisinopril 10 mg-hydrochl orothiazide 12.5 mg tablet 2022 023 [facility], [address] [place] [address], [id number], 3 14:16:07 levothyroxi ne 25 mcg tablet 2022 023 [facility], [address] [place] [address], [id number], 3 14:16:10 zolpidem 10 mg tablet 2022 023 [facility], [address] [place] [address], [id number], 3 14:21:19 pregabalin 200 mg capsule 2022 023 [facility], [address] [place] [address], [id number], 3 14:21:19 ergocalcife rol (vitamin D2) 1,250 mcg (50,000 unit) capsule 2022 023 [facility], [address] [place] [address], [id number], 3 14:11:35 Lantus Solostar U-100 Insulin 100 unit/mL (3 mL) subcutaneou s pen 2022 023 [facility], [address] [place] [address], [id number], 3 14:11:34 Alcohol Prep Pads 2022 023 [facility], [address] [place] [address], [id number], 3 14:11:34 bupropion HCl XL 150 mg 24 hr tablet, extended release 2022 023 [facility], [address] [place] [address], [id number], 3 10:31:26 pregabalin 200 mg capsule 2022 023 [facility], [address] [place] [address], [id number], 3 10:31:26 zolpidem 10 mg tablet 2022 023 [facility], [address] [place] [address], [id number], 3 10:31:26 Trulicity 4.5 mg/0.5 mL subcutaneou s pen injector 2022 023 [facility], [address] [place] [address], [id number], 3 16:10:35 Patient TargetsNo targets recorded. Patient InstructionsNo instructions recorded. Reason for Referral None Reported. Results Created Date Observation Date Name Description Value Unit Range Abnormal Flag Note LastModifiedBy Organization Detail LastModifiedTime 11/21/1911/22/2022 CBC WITH DIFFE RENTI AL/PL ATELE T WBC 9.5 x10e3 /uL 3.4-10 .8 Not Available [facility] ([facility]) [address] [facility], [place], [address], 11/22/2022 06:15:14 11/21/1911/22/2022 CBC WITH DIFFE RENTI AL/PL ATELE T RBC 5.27 x10e6 /uL 3.77-5 .28 Not Available [facility] ([facility]) [address] [place], [address], 11/22/2022 06:15:14 11/21/1911/22/2022 CBC WITH DIFFE RENTI AL/PL ATELE T hemoglobin 14.9 g/dL 11.1-1 5.9 Not Available [facility] ([facility]) [address] [place], [address], 11/22/2022 06:15:14 11/21/1911/22/2022 CBC WITH DIFFE RENTI AL/PL ATELE T hematocrit 46.9 % 34.0-4 6.6 above high normal Not Available [facility] ([facility]) [address] [place], [address], 11/22/2022 06:15:14 11/21/1911/22/2022 CBC WITH DIFFE RENTI AL/PL ATELE T MCV 89 fL 79-97 Not Available [facility] ([facility]) [address] [place], [address], 11/22/2022 06:15:14 11/21/1911/22/2022 CBC WITH DIFFE RENTI AL/PL ATELE T MCH 28.3 pg 26.6-3 3.0 Not Available [facility] ([facility]) [address] [facility], [place], [address], 11/22/2022 06:15:14 11/21/19 23 11/22/2022 CBC WITH DIFFE RENTI AL/PL ATELE T MCHC 31.8 g/dL 31.5-3 5.7 Not Available [facility] ([facility]) [address] [facility], [place], [address], 11/22/2022 06:15:14 11/21/19 23 11/22/2022 CBC WITH DIFFE RENTI AL/PL ATELE T RDW 13.7 % 11.7-1 5.4 Not Available [facility] ([facility]) [address] [facility], [place], [address], 11/22/2022 06:15:14 11/21/19 23 11/22/2022 CBC WITH DIFFE RENTI AL/PL ATELE T platelets 212 x10e3 /uL 150-45 0 Not Available [facility] ([facility]) [address] [facility], [place], [address], 11/22/2022 06:15:14 11/21/19 23 11/22/2022 CBC WITH DIFFE RENTI AL/PL ATELE T neutrophils 52 % not estab. Not Available [facility] ([facility]) [address] [place], [address], 11/22/2022 06:15:14 11/21/19 23 11/22/2022 CBC WITH DIFFE RENTI AL/PL ATELE T lymphs 39 % not estab. Not Available [facility] ([facility]) [address] [place], [address], 11/22/2022 06:15:14 11/21/19 23 11/22/2022 CBC WITH DIFFE RENTI AL/PL ATELE T monocytes 6 % not estab. Not Available [facility] ([facility]) [address] [place], [address], 11/22/2022 06:15:14 11/21/19 23 11/22/2022 CBC WITH DIFFE RENTI AL/PL ATELE T eos 2 % not estab. Not Available [facility] ([facility]) [address] [facility], [place], [address], 11/22/2022 06:15:14 11/21/19 23 11/22/2022 CBC WITH DIFFE RENTI AL/PL ATELE T basos 1 % not estab. Not Available [facility] ([facility]) [address] [facility], [place], [address], 11/22/2022 06:15:14 11/21/19 23 11/22/2022 CBC WITH DIFFE RENTI AL/PL ATELE T immature cells DIRECTOR OF OUTSIDE SALES Not Available [facility] ([facility]) [address] [place], [address], 11/22/2022 06:15:14 11/21/1911/22/2022 CBC WITH DIFFE RENTI AL/PL ATELE T neutrophils (absolute) 5.0 x10e3 /uL 1.4-7. 0 Not Available [facility] ([facility]) [address] [place], [address], 11/22/2022 06:15:14 11/21/1911/22/2022 CBC WITH DIFFE RENTI AL/PL ATELE T lymphs (absolute) 3.7 x10e3 /uL 0.7-3. 1 above high normal Not Available [facility] ([facility]) [address] [place], [address], 11/22/2022 06:15:14 11/21/1911/22/2022 CBC WITH DIFFE RENTI AL/PL ATELE T monocytes(ab solute) 0.5 x10e3 /uL 0.1-0. 9 Not Available [facility] ([facility]) [address] [place], [address], 11/22/2022 06:15:14 11/21/19 23 11/22/2022 CBC WITH DIFFE RENTI AL/PL ATELE T eos (absolute) 0.2 x10e3 /uL 0.0-0. 4 Not Available [facility] ([facility]) [address], [place], [address], 11/22/2022 06:15:14 11/21/19 23 11/22/2022 CBC WITH DIFFE RENTI AL/PL ATELE T baso (absolute) 0.1 x10e3 /uL 0.0-0. 2 Not Available [facility] ([facility]) [address], [place], [address], 11/22/2022 06:15:14 11/21/19 23 11/22/2022 CBC WITH DIFFE RENTI AL/PL ATELE T immature granulocytes 0 % not estab. Not Available [facility] ([facility]) [address], [place], [address], 11/22/2022 06:15:14 11/21/1911/22/2022 CBC WITH DIFFE RENTI AL/PL ATELE T immature grans (abs) 0.0 x10e3 /uL 0.0-0. 1 Not Available [facility] ([facility]) [address] [facility], [place], [address], 11/22/2022 06:15:14 11/21/1911/22/2022 CBC WITH DIFFE RENTI AL/PL ATELE T NRBC DIRECTOR OF OUTSIDE SALES Not Available [facility] ([facility]) [address] [facility], [place], [address], 11/22/2022 06:15:14 11/21/1911/22/2022 CBC WITH DIFFE RENTI AL/PL ATELE T hematology comments: DIRECTOR OF OUTSIDE SALES Not Available [facility] ([facility]) [address] [facility], [place], [address], 11/22/2022 06:15:14 11/21/19 23 11/22/2022 COMP. METAB OLIC PANEL (14) glucose 589 mg/dL 70-99 panic high Walker ified by iraj gutierrez Not Available [facility] ([facility]) [address] [facility] [place], [address], 11/22/2022 06:15:15 11/21/19 23 11/22/2022 COMP. METAB OLIC PANEL (14) BUN 19 mg/dL 6-24 Not Available [facility] ([facility]) [address] [facility] [place], [address], 11/22/2022 06:15:15 11/21/19 23 11/22/2022 COMP. METAB OLIC PANEL (14) creatinine 0.78 mg/dL 0.57-1 .00 Not Available [facility] ([facility]) [address] [facility] [place], [address], 11/22/2022 06:15:15 11/21/19 23 11/22/2022 COMP. METAB OLIC PANEL (14) eGFR 94 mL/mi n/1.7 3 >59 Not Available [facility] ([facility]) [address] [facility] [place], [address], 11/22/2022 06:15:15 11/21/19 23 11/22/2022 COMP. METAB OLIC PANEL (14) BUN/creatini ne ratio 24 9-23 above high normal Not Available [facility] ([facility]) [address] [facility] [place], [address], 11/22/2022 06:15:15 11/21/19 23 11/22/2022 COMP. METAB OLIC PANEL (14) sodium 130 mmol/ L 134-14 4 below low normal Not Available [facility] ([facility]) [address] [facility] [place], [address], 11/22/2022 06:15:15 11/21/19 23 11/22/2022 COMP. METAB OLIC PANEL (14) potassium 5.2 mmol/ L 3.5-5. 2 Not Available [facility] ([facility]) [address] [facility], [place], [address], 11/22/2022 06:15:15 11/21/19 23 11/22/2022 COMP. METAB OLIC PANEL (14) chloride 92 mmol/ L 96-106 below low normal Not Available [facility] ([facility]) [address] [facility], [place], [address], 11/22/2022 06:15:15 11/21/19 23 11/22/2022 COMP. METAB OLIC PANEL (14) carbon dioxide, total 22 mmol/ L 20-29 Not Available [facility] ([facility]) [address] [facility], [place], [address], 11/22/2022 06:15:15 11/21/19 23 11/22/2022 COMP. METAB OLIC PANEL (14) calcium 9.1 mg/dL 8.7-10 .2 Not Available [facility] ([facility]) [address] [facility], [place], [address], 11/22/2022 06:15:15 11/21/19 23 11/22/2022 COMP. METAB OLIC PANEL (14) protein, total 6.7 g/dL 6.0-8. 5 Not Available [facility] ([facility]) [address] [facility], [place], [address], 11/22/2022 06:15:15 11/21/19 23 11/22/2022 COMP. METAB OLIC PANEL (14) albumin 4.4 g/dL 3.8-4. 8 Not Available [facility] ([facility]) [address] [facility], [place], [address], 11/22/2022 06:15:15 11/21/19 23 11/22/2022 COMP. METAB OLIC PANEL (14) globulin, total 2.3 g/dL 1.5-4. 5 Not Available [facility] ([facility]) [address] [facility] [place], [address], 11/22/2022 06:15:15 11/21/19 23 11/22/2022 COMP. METAB OLIC PANEL (14) A/G ratio 1.9 1.2-2. 2 Not Available [facility] ([facility]) [address] [facility] [place], [address], 11/22/2022 06:15:15 11/21/19 23 11/22/2022 COMP. METAB OLIC PANEL (14) bilirubin, total 0.2 mg/dL 0.0-1. 2 Not Available [facility] ([facility]) [address] [place], [address], 11/22/2022 06:15:15 11/21/19 23 11/22/2022 COMP. METAB OLIC PANEL (14) alkaline phosphatase 187 IU/L 44-121 above high normal Not Available [facility] ([facility]) [address] [place], [address], 11/22/2022 06:15:15 11/21/19 23 11/22/2022 COMP. METAB OLIC PANEL (14) AST (SGOT) 11 IU/L 0-40 Not Available [facility] ([facility]) [address] [place], [address], 11/22/2022 06:15:15 11/21/19 23 11/22/2022 COMP. METAB OLIC PANEL (14) ALT (SGPT) 18 IU/L 0-32 Not Available [facility] ([facility]) [address] [place], [address], 11/22/2022 06:15:15 11/21/19 23 11/22/2022 HEMOG LOBIN A1C hemoglobin A1C 12.5 % 4.8-5. 6 above high normal Predi abete s: 5.7 - 6.4 Diabe rosa: >6.4 Glyce barbara contr ol for adult s with diabe rosa: <7.0 Not Available [facility] ([facility]) [address] [facility], [place], [address], 11/22/2022 06:15:16 11/21/19 23 11/22/2022 VITAM IN D, 25-HY DROXY vitamin D, 25-hydroxy 7.2 NG/mL 30.0-1 00.0 below low normal Vitam in D defic iency has been defin ed by the Insti tute of Medic ine and an Endoc rine Socie ty pract ice guide line as a level of serum 25-OH vitam in D less than 20 ng/mL (1,2) . The Endoc rine Socie ty went on to furth er defin e vitam in D insuf ficie ncy as a level betwe en 21 and 29 ng/mL (2). 1. IOM (Inst itute of Medic ine). 2009. Dieta ry refer ence intak es for calci um and D. Alexis valdovinos [place]: The Natio nal [facility] Press . 2. Migdalia briscoe MF, Josefina zamarripa [place], Magui off-F patria i DO, et al. Evalu ation , treat ment, and preve ntion of vitam in D defic iency : an Endoc rine Socie ty clini alin pract ice guide line. JCEM. 2010; 96(7) :1911 -30. Not Available [facility] ([facility]) [address] [facility], [place], [address], 11/22/2022 06:15:17 11/21/19 23 11/21/2022 LOUIE Watkins NOTE please note Commen t The date and/o r time of colle ction was not indic ated on the requi sitio n as requi red by state and [place] law. The date of recei pt of the speci men was used as the colle ction date if not suppl ied. Not Available [facility] ([facility]) [address] [place], [address], 11/22/2022 06:15:18 03/13/20 23 03/14/2023 CBC WITH DIFFE RENTI AL/PL ATELE T WBC 10.4 x10e3 /uL 3.4-10 .8 Not Available [facility] ([facility]) [address] [facility], [place], [address], 03/14/2023 07:12:22 03/13/20 23 03/14/2023 CBC WITH DIFFE RENTI AL/PL ATELE T RBC 5.20 x10e6 /uL 3.77-5 .28 Not Available [facility] ([facility]) [address] [place], [address], 03/14/2023 07:12:22 03/13/20 23 03/14/2023 CBC WITH DIFFE RENTI AL/PL ATELE T hemoglobin 14.8 g/dL 11.1-1 5.9 Not Available [facility] ([facility]) [address] [facility], [place], [address], 03/14/2023 07:12:22 03/13/2003/14/2023 CBC WITH DIFFE RENTI AL/PL ATELE T hematocrit 44.1 % 34.0-4 6.6 Not Available [facility] ([facility]) [address] [place], [address], 03/14/2023 07:12:22 03/13/2003/14/2023 CBC WITH DIFFE RENTI AL/PL ATELE T MCV 85 fL 79-97 Not Available [facility] ([facility]) [address] [place], [address], 03/14/2023 07:12:22 03/13/2003/14/2023 CBC WITH DIFFE RENTI AL/PL ATELE T MCH 28.5 pg 26.6-3 3.0 Not Available [facility] ([facility]) [address] [place], [address], 03/14/2023 07:12:22 03/13/20 23 03/14/2023 CBC WITH DIFFE RENTI AL/PL ATELE T MCHC 33.6 g/dL 31.5-3 5.7 Not Available [facility] ([facility]) [address] [facility], [place], [address], 03/14/2023 07:12:22 03/13/20 23 03/14/2023 CBC WITH DIFFE RENTI AL/PL ATELE T RDW 13.4 % 11.7-1 5.4 Not Available [facility] ([facility]) [address] [facility], [place], [address], 03/14/2023 07:12:22 03/13/20 23 03/14/2023 CBC WITH DIFFE RENTI AL/PL ATELE T platelets 272 x10e3 /uL 150-45 0 Not Available [facility] ([facility]) [address] [facility], [place], [address], 03/14/2023 07:12:22 03/13/2003/14/2023 CBC WITH DIFFE RENTI AL/PL ATELE T neutrophils 61 % not estab. Not Available [facility] ([facility]) [address] [facility], [place], [address], 03/14/2023 07:12:22 03/13/20 23 03/14/2023 CBC WITH DIFFE RENTI AL/PL ATELE T lymphs 31 % not estab. Not Available [facility] ([facility]) [address] [facility], [place], [address], 03/14/2023 07:12:22 03/13/20 23 03/14/2023 CBC WITH DIFFE RENTI AL/PL ATELE T monocytes 5 % not estab. Not Available [facility] ([facility]) [address] [facility], [place], [address], 03/14/2023 07:12:22 03/13/20 23 03/14/2023 CBC WITH DIFFE RENTI AL/PL ATELE T eos 1 % not estab. Not Available [facility] ([facility]) [address] [place], [address], 03/14/2023 07:12:22 03/13/20 23 03/14/2023 CBC WITH DIFFE RENTI AL/PL ATELE T basos 1 % not estab. Not Available [facility] ([facility]) [address] [facility], [place], [address], 03/14/2023 07:12:22 03/13/20 23 03/14/2023 CBC WITH DIFFE RENTI AL/PL ATELE T immature cells DIRECTOR OF OUTSIDE SALES Not Available [facility] ([facility]) [address] [place], [address], 03/14/2023 07:12:22 03/13/20 23 03/14/2023 CBC WITH DIFFE RENTI AL/PL ATELE T neutrophils (absolute) 6.6 x10e3 /uL 1.4-7. 0 Not Available [facility] ([facility]) [address] [place], [address], 03/14/2023 07:12:22 03/13/20 23 03/14/2023 CBC WITH DIFFE RENTI AL/PL ATELE T lymphs (absolute) 3.2 x10e3 /uL 0.7-3. 1 above high normal Not Available [facility] ([facility]) [address] [place], [address], 03/14/2023 07:12:22 03/13/20 23 03/14/2023 CBC WITH DIFFE RENTI AL/PL ATELE T monocytes(ab solute) 0.5 x10e3 /uL 0.1-0. 9 Not Available [facility] ([facility]) [address] [place], [address], 03/14/2023 07:12:22 03/13/20 23 03/14/2023 CBC WITH DIFFE RENTI AL/PL ATELE T eos (absolute) 0.1 x10e3 /uL 0.0-0. 4 Not Available [facility] ([facility]) [address] [facility], [place], [address], 03/14/2023 07:12:22 03/13/20 23 03/14/2023 CBC WITH DIFFE RENTI AL/PL ATELE T baso (absolute) 0.1 x10e3 /uL 0.0-0. 2 Not Available [facility] ([facility]) [address] [facility], [place], [address], 03/14/2023 07:12:22 03/13/20 23 03/14/2023 CBC WITH DIFFE RENTI AL/PL ATELE T immature granulocytes 1 % not estab. Not Available [facility] ([facility]) [address] [facility], [place], [address], 03/14/2023 07:12:22 03/13/20 23 03/14/2023 CBC WITH DIFFE RENTI AL/PL ATELE T immature grans (abs) 0.1 x10e3 /uL 0.0-0. 1 Not Available [facility] ([facility]) [address] [facility], [place], [address], 03/14/2023 07:12:22 03/13/20 23 03/14/2023 CBC WITH DIFFE RENTI AL/PL ATELE T NRBC DIRECTOR OF OUTSIDE SALES Not Available [facility] ([facility]) [address] [facility], [place], [address], 03/14/2023 07:12:22 03/13/20 23 03/14/2023 CBC WITH DIFFE RENTI AL/PL ATELE T hematology comments: DIRECTOR OF OUTSIDE SALES Not Available [facility] ([facility]) [address] [facility], [place], [address], 03/14/2023 07:12:22 03/13/20 23 03/14/2023 COMP. METAB OLIC PANEL (14) glucose 430 mg/dL 70-99 above high normal Not Available [facility] ([facility]) [address] [place], [address], 03/18/2023 17:08:24 03/13/20 23 03/14/2023 COMP. METAB OLIC PANEL (14) BUN 20 mg/dL 6-24 Not Available [facility] ([facility]) [address] [place], [address], 03/18/2023 17:08:24 03/13/20 23 03/14/2023 COMP. METAB OLIC PANEL (14) creatinine 0.76 mg/dL 0.57-1 .00 Not Available [facility] (St. [facility]) [address] [place], [address], 03/18/2023 17:08:24 03/13/20 23 03/14/2023 COMP. METAB OLIC PANEL (14) eGFR 96 mL/mi n/1.7 3 >59 Not Available [facility] ([facility]) [address] [place], [address], 03/18/2023 17:08:24 03/13/20 23 03/14/2023 COMP. METAB OLIC PANEL (14) BUN/creatini ne ratio 26 9-23 above high normal Not Available [facility] ([facility]) [address] [place], [address], 03/18/2023 17:08:24 03/13/20 23 03/14/2023 COMP. METAB OLIC PANEL (14) sodium 135 mmol/ L 134-14 4 Not Available [facility] ([facility]) [address] [place], [address], 03/18/2023 17:08:24 03/13/20 23 03/14/2023 COMP. METAB OLIC PANEL (14) potassium 5.2 mmol/ L 3.5-5. 2 Not Available [facility] ([facility]) [address] [place], [address], 03/18/2023 17:08:24 03/13/20 23 03/14/2023 COMP. METAB OLIC PANEL (14) chloride 97 mmol/ L 96-106 Not Available [facility] ([facility]) [address] [place], [address], 03/18/2023 17:08:24 03/13/20 23 03/14/2023 COMP. METAB OLIC PANEL (14) carbon dioxide, total 23 mmol/ L 20-29 Not Available [facility] ([facility]) [address] [place], [address], 03/18/2023 17:08:24 03/13/20 23 03/14/2023 COMP. METAB OLIC PANEL (14) calcium 9.6 mg/dL 8.7-10 .2 Not Available [facility] ([facility]) [address] [place], [address], 03/18/2023 17:08:24 03/13/20 23 03/14/2023 COMP. METAB OLIC PANEL (14) protein, total 6.6 g/dL 6.0-8. 5 Not Available [facility] ([facility]) [address] [facility] [place], [address], 03/18/2023 17:08:24 03/13/20 23 03/14/2023 COMP. METAB OLIC PANEL (14) albumin 4.2 g/dL 3.8-4. 8 Not Available [facility] ([facility]) [address] [facility] [place], [address], 03/18/2023 17:08:24 03/13/20 23 03/14/2023 COMP. METAB OLIC PANEL (14) globulin, total 2.4 g/dL 1.5-4. 5 Not Available [facility] ([facility]) [address] [facility] [place], [address], 03/18/2023 17:08:24 03/13/20 23 03/14/2023 COMP. METAB OLIC PANEL (14) A/G ratio 1.8 1.2-2. 2 Not Available [facility] ([facility]) [address] [facility] [place], [address], 03/18/2023 17:08:24 03/13/20 23 03/14/2023 COMP. METAB OLIC PANEL (14) bilirubin, total <0.2 mg/dL 0.0-1. 2 Not Available [facility] ([facility]) [address] [facility] [place], [address], 03/18/2023 17:08:24 03/13/20 23 03/14/2023 COMP. METAB OLIC PANEL (14) alkaline phosphatase 135 IU/L 44-121 above high normal Not Available [facility] ([facility]) [address] [facility], [place], [address], 03/18/2023 17:08:24 03/13/20 23 03/14/2023 COMP. METAB OLIC PANEL (14) AST (SGOT) 10 IU/L 0-40 Not Available [facility] ([facility]) [address] [place], [address], 03/18/2023 17:08:24 03/13/20 23 03/14/2023 COMP. METAB OLIC PANEL (14) ALT (SGPT) 11 IU/L 0-32 Not Available [facility] ([facility]) [address] [place], [address], 03/18/2023 17:08:24 03/13/20 23 03/14/2023 HEMOG LOBIN A1C hemoglobin A1C 12.4 % 4.8-5. 6 above high normal Predi abete s: 5.7 - 6.4 Diabe rosa: >6.4 Glyce barbara contr ol for adult s with diabe rosa: <7.0 Not Available [facility] ([facility]) [address] [facility], [place], [address], 03/14/2023 09:15:47 03/13/20 23 03/14/2023 VITAM IN D, 25-HY DROXY vitamin D, 25-hydroxy 21.0 NG/mL 30.0-1 00.0 below low normal Vitam in D defic iency has been defin ed by the Insti tute of Medic ine and an Endoc rine Socie ty pract ice guide line as a level of serum 25-OH vitam in D less than 20 ng/mL (1,2) . The Endoc rine Socie ty went on to furth er defin e vitam in D insuf ficie ncy as a level betwe en 21 and 29 ng/mL (2). 1. IOM (Inst itute of Medic ine). 2010. Tyson ry refer ence chalo es for calci um and D. Alexis valdovinos [place]: [facility] Press . 2. Migdalia briscoe MF, Josefina zamarripa [place], Magui off-F errar i DO, et al. Evalu ation , treat ment, and preve ntion of vitam in D defic iency : an Endoc rine Socie ty clini alin pract ice guide line. JCEM. 2010; 96(7) :1911 -30. Not Available [facility] ([facility]) [address] [facility], [place], [address], 03/14/2023 09:15:49 03/13/20 23 03/18/2023 METHY LMALO JACY ACID, SERUM methylmaloni c acid, serum 122 nmol/ L 0-378 Not Available [facility] ([facility]) [address] [facility], [place], [address], 03/18/2023 17:08:26 03/13/20 23 03/14/2023 VITAM IN B12 vitamin B12 471 pg/mL 232-12 45 Not Available [facility] ([facility]) [address] [facility], [place], [address], 03/14/2023 09:15:51 10/11/20 23 10/11/2023 CBC WITH DIFFE RENTI AL/PL ATELE T WBC 8.3 x10e3 /uL 3.4-10 .8 Not Available [facility] ([facility]) [address] [facility], [place], [address], 10/11/2023 07:13:38 10/11/20 23 10/11/2023 CBC WITH DIFFE RENTI AL/PL ATELE T RBC 5.57 x10e6 /uL 3.77-5 .28 above high normal Not Available [facility] ([facility]) [address] [facility], [place], [address], 10/11/2023 07:13:38 10/11/20 23 10/11/2023 CBC WITH DIFFE RENTI AL/PL ATELE T hemoglobin 16.0 g/dL 11.1-1 5.9 above high normal Not Available [facility] ([facility]) [address] [facility], [place], [address], 10/11/2023 07:13:38 10/11/20 23 10/11/2023 CBC WITH DIFFE RENTI AL/PL ATELE T hematocrit 48.2 % 34.0-4 6.6 above high normal Not Available [facility] ([facility]) [address] [place], [address], 10/11/2023 07:13:38 10/11/20 23 10/11/2023 CBC WITH DIFFE RENTI AL/PL ATELE T MCV 87 fL 79-97 Not Available [facility] ([facility]) [address] [place], [address], 10/11/2023 07:13:38 10/11/20 23 10/11/2023 CBC WITH DIFFE RENTI AL/PL ATELE T MCH 28.7 pg 26.6-3 3.0 Not Available [facility] ([facility]) [address] [facility], [place], [address], 10/11/2023 07:13:38 10/11/20 23 10/11/2023 CBC WITH DIFFE RENTI AL/PL ATELE T MCHC 33.2 g/dL 31.5-3 5.7 Not Available [facility] ([facility]) [address] [facility], [place], [address], 10/11/2023 07:13:38 10/11/20 23 10/11/2023 CBC WITH DIFFE RENTI AL/PL ATELE T RDW 13.6 % 11.7-1 5.4 Not Available [facility] ([facility]) [address] [facility], [place], [address], 10/11/2023 07:13:38 10/11/20 23 10/11/2023 CBC WITH DIFFE RENTI AL/PL ATELE T platelets 238 x10e3 /uL 150-45 0 Not Available [facility] ([facility]) [address] [facility], [place], [address], 10/11/2023 07:13:38 10/11/20 23 10/11/2023 CBC WITH DIFFE RENTI AL/PL ATELE T neutrophils 51 % not estab. Not Available [facility] ([facility]) [address] [facility], [place], [address], 10/11/2023 07:13:38 10/11/20 23 10/11/2023 CBC WITH DIFFE RENTI AL/PL ATELE T lymphs 40 % not estab. Not Available [facility] ([facility]) [address] [facility], [place], [address], 10/11/2023 07:13:38 10/11/20 23 10/11/2023 CBC WITH DIFFE RENTI AL/PL ATELE T monocytes 6 % not estab. Not Available [facility] ([facility]) [address] [facility], [place], [address], 10/11/2023 07:13:38 10/11/20 23 10/11/2023 CBC WITH DIFFE RENTI AL/PL ATELE T eos 1 % not estab. Not Available [facility] ([facility]) [address] [facility], [place], [address], 10/11/2023 07:13:38 10/11/20 23 10/11/2023 CBC WITH DIFFE RENTI AL/PL ATELE T basos 1 % not estab. Not Available [facility] ([facility]) [address] [facility], [place], [address], 10/11/2023 07:13:38 10/11/20 23 10/11/2023 CBC WITH DIFFE RENTI AL/PL ATELE T immature cells DIRECTOR OF OUTSIDE SALES Not Available [facility] ([facility]) [address] [place], [address], 10/11/2023 07:13:38 10/11/20 23 10/11/2023 CBC WITH DIFFE RENTI AL/PL ATELE T neutrophils (absolute) 4.3 x10e3 /uL 1.4-7. 0 Not Available [facility] ([facility]) [address] [place], [address], 10/11/2023 07:13:38 10/11/20 23 10/11/2023 CBC WITH DIFFE RENTI AL/PL ATELE T lymphs (absolute) 3.3 x10e3 /uL 0.7-3. 1 above high normal Not Available [facility] ([facility]) [address] [place], [address], 10/11/2023 07:13:38 10/11/20 23 10/11/2023 CBC WITH DIFFE RENTI AL/PL ATELE T monocytes(ab solute) 0.5 x10e3 /uL 0.1-0. 9 Not Available [facility] ([facility]) [address] [place], [address], 10/11/2023 07:13:38 10/11/20 23 10/11/2023 CBC WITH DIFFE RENTI AL/PL ATELE T eos (absolute) 0.1 x10e3 /uL 0.0-0. 4 Not Available [facility] ([facility]) [address] [facility], [place], [address], 10/11/2023 07:13:38 10/11/20 23 10/11/2023 CBC WITH DIFFE RENTI AL/PL ATELE T baso (absolute) 0.1 x10e3 /uL 0.0-0. 2 Not Available [facility] ([facility]) [address] [facility], [place], [address], 10/11/2023 07:13:38 10/11/20 23 10/11/2023 CBC WITH DIFFE RENTI AL/PL ATELE T immature granulocytes 1 % not estab. Not Available [facility] ([facility]) [address] [facility], [place], [address], 10/11/2023 07:13:38 10/11/20 23 10/11/2023 CBC WITH DIFFE RENTI AL/PL ATELE T immature grans (abs) 0.0 x10e3 /uL 0.0-0. 1 Not Available [facility] ([facility]) [address] [facility], [place], [address], 10/11/2023 07:13:38 10/11/20 23 10/11/2023 CBC WITH DIFFE RENTI AL/PL ATELE T NRBC DIRECTOR OF OUTSIDE SALES Not Available [facility] ([facility]) [address] [facility], [place], [address], 10/11/2023 07:13:38 10/11/20 23 10/11/2023 CBC WITH DIFFE RENTI AL/PL ATELE T hematology comments: DIRECTOR OF OUTSIDE SALES Not Available [facility] ([facility]) [address] [facility], [place], [address], 10/11/2023 07:13:38 10/11/20 23 10/11/2023 COMP. METAB OLIC PANEL (14) glucose 396 mg/dL 70-99 above high normal Not Available [facility] ([facility]) [address] [place], [address], 10/11/2023 13:09:21 10/11/20 23 10/11/2023 COMP. METAB OLIC PANEL (14) BUN 13 mg/dL 6-24 Not Available [facility] ([facility]) [address] [place], [address], 10/11/2023 13:09:21 10/11/20 23 10/11/2023 COMP. METAB OLIC PANEL (14) creatinine 0.69 mg/dL 0.57-1 .00 Not Available [facility] ([facility]) [address] [place], [address], 10/11/2023 13:09:21 10/11/20 23 10/11/2023 COMP. METAB OLIC PANEL (14) eGFR 106 mL/mi n/1.7 3 >59 Not Available [facility] ([facility]) [address] [place], [address], 10/11/2023 13:09:21 10/11/20 23 10/11/2023 COMP. METAB OLIC PANEL (14) BUN/creatini ne ratio 19 9-23 Not Available [facility] ([facility]) [address] [place], [address], 10/11/2023 13:09:21 10/11/20 23 10/11/2023 COMP. METAB OLIC PANEL (14) sodium 135 mmol/ L 134-14 4 Not Available [facility] ([facility]) [address] [place], [address], 10/11/2023 13:09:21 10/11/20 23 10/11/2023 COMP. METAB OLIC PANEL (14) potassium 4.4 mmol/ L 3.5-5. 2 Not Available [facility] ([facility]) [address] [place], [address], 10/11/2023 13:09:21 10/11/20 23 10/11/2023 COMP. METAB OLIC PANEL (14) chloride 97 mmol/ L 96-106 Not Available [facility] ([facility]) [address] [place], [address], 10/11/2023 13:09:21 10/11/20 23 10/11/2023 COMP. METAB OLIC PANEL (14) carbon dioxide, total TNP mmol/ L Test not perfo rmed. Due to a lack of repro ducib ility with this patie nt sampl e, a valid resul t could not be obtai kevin. Not Available [facility] ([facility]) [address] [place], [address], 10/11/2023 13:09:21 10/11/20 23 10/11/2023 COMP. METAB OLIC PANEL (14) calcium 10.0 mg/dL 8.7-10 .2 Not Available [facility] ([facility]) [address] [place], [address], 10/11/2023 13:09:21 10/11/20 23 10/11/2023 COMP. METAB OLIC PANEL (14) protein, total 7.3 g/dL 6.0-8. 5 Not Available [facility] ([facility]) [address] [facility] [place], [address], 10/11/2023 13:09:21 10/11/20 23 10/11/2023 COMP. METAB OLIC PANEL (14) albumin 4.5 g/dL 3.9-4. 9 Not Available [facility] ([facility]) [address] [place], [address], 10/11/2023 13:09:21 10/11/20 23 10/11/2023 COMP. METAB OLIC PANEL (14) globulin, total 2.8 g/dL 1.5-4. 5 Not Available [facility] ([facility]) [address] [place], [address], 10/11/2023 13:09:21 10/11/20 23 10/11/2023 COMP. METAB OLIC PANEL (14) A/G ratio 1.6 1.2-2. 2 Not Available [facility] ([facility]) [address] [place], [address], 10/11/2023 13:09:21 10/11/20 23 10/11/2023 COMP. METAB OLIC PANEL (14) bilirubin, total <0.2 mg/dL 0.0-1. 2 Not Available [facility] ([facility]) [address] [place], [address], 10/11/2023 13:09:21 10/11/20 23 10/11/2023 COMP. METAB OLIC PANEL (14) alkaline phosphatase 195 IU/L 44-121 above high normal Not Available [facility] ([facility]) [address] [place], [address], 10/11/2023 13:09:21 10/11/20 23 10/11/2023 COMP. METAB OLIC PANEL (14) AST (SGOT) 15 IU/L 0-40 Not Available [facility] ([facility]) [address] [place], [address], 10/11/2023 13:09:21 10/11/20 23 10/11/2023 COMP. METAB OLIC PANEL (14) ALT (SGPT) 13 IU/L 0-32 Not Available [facility] ([facility]) [address] [place], [address], 10/11/2023 13:09:21 10/11/20 23 10/11/2023 HEMOG LOBIN A1C hemoglobin A1C 14.5 % 4.8-5. 6 above high normal Predi abete s: 5.7 - 6.4 Diabe rosa: >6.4 Glyce barbara contr ol for adult s with diabe rosa: <7.0 Not Available [facility] ([facility]) [address] [facility], [place], [address], 10/11/2023 10:13:04 10/11/20 23 10/11/2023 LOUIE Watkins NOTE please note Commen t The date and/o r time of colle ction was not indic ated on the requi sitio n as requi red by state and [place] law. The date of recei pt of the speci men was used as the colle ction date if not suppl ied. Not Available [facility] ([facility]) [address] [facility], [place], [address], 10/11/2023 07:13:40 10/11/20 23 10/11/2023 COMPL IANCE DRUG OSEI SIS, UR summary report (summary) DIRECTOR OF OUTSIDE SALES Not Available [facility] ([facility]) [address] [place], [address], 10/11/2023 19:08:10 10/11/20 23 10/11/2023 COMPL IANCE DRUG OSEI SIS, UR pdf DIRECTOR OF OUTSIDE SALES Not Available [facility] ([facility]) [address] [place], [address], 10/11/2023 19:08:10 10/11/20 23 10/11/2023 SPECI MEN STATU S REPOR T specimen status report TNP Test not perfo rmed. No urine speci men recei shine. TEST: [id number] Compl iance Drug Osei sis, Ur Not Available [facility] ([facility]) [address] [place], [address], 10/11/2023 19:08:12 Result Notes None recorded. Problems Name Problem SNOMED Code Status Onset Date Resolution Date Notes Provider Name and Address Organization Details Recorded Time Type 2 diabetes mellitus 92281562 Active 2021 insulin dependent Not Available [facility] 4 00:21:27 Diabetic periphera l neuropath y 094947795 Active 2021 Not Available [facility] 4 00:21:27 Gastro-es ophageal reflux disease with esophagit is 974221419 Active 2021 Not Available [facility] 4 00:21:27 Insomnia 117848271 Active 2021 Not Available [facility] 4 00:21:27 Chronic headache disorder 349656583 Active 2021 Not Available [facility] 4 00:21:27 Nonulcer dyspepsia 6750511 Active 2021 Not Available [facility] 4 00:21:27 Breast lump 15150155 Active 2022 Not Available [facility] 4 00:21:28 Seasonal affective disorder 201064776 Active 2022 Not Available [facility] 4 00:21:27 Vitamin D deficienc y 44433886 Active 2022 Not Available [facility] 4 00:21:27 Chronic obstructi ve pulmonary disease 15067226 Active 2022 Not Available [facility] 4 00:21:27 Essential hypertens ion 04286140 Active 2022 Not Available [facility] 4 00:21:27 Mixed hyperlipi demia 664568498 Active 2022 Not Available [facility] 4 00:21:27 Hypothyro idism 79429114 Active 2022 Not Available [facility] 4 00:21:27 Mixed anxiety and depressiv e disorder 679976186 Active 2022 Not Available [facility] 4 00:21:27 Notes:Some problems listed i n Document: #[id number] could not be added to this patient's chart. Please review this document and add these problems to the patient's chart manually as needed. Problem Notes None recorded. Procedures Surgical History Date Name Laterality Status Provider Name and Address Organization Details Recorded Time 5 Tubal Ligation completed Mahogany Funk [place] - [facility] [place] 08/08/2022 10:41:09 4 Unlisted px hands/fingers completed Mahogany BARILLAS - [facility] [place] 08/08/2022 10:41:00 Imaging Results None recorded. Procedure Notes None recorded. Medical Equipment None Reported. Allergies No known drug allergies Medications Name Sig Start Date Stop Date Status Note LastModified by Organization Details LastModified Time fluoxetine 40 mg capsule TAKE 1 CAPSULE 1 TIME EACH DAY active Not Available Not Available No t Available bupropion HCl SR 150 mg tablet,12 hr sustained- release TAKE 1 TABLET 1 TIME EACH DAY IN THE MORNING 08/08 completed Not Available Not Available Not Available BD Alcohol Swabs USE TO DISINFEC T SKIN BEFORE INJECTIN G INSULIN 3 TIMES EACH DAY active Not Available Not Available No t Available ipratropiu m 0.5 mg-albuter ol 3 mg (2.5 mg base)/3 mL nebulizati on soln INHALE CONTENTS OF 1 VIAL USING A NEBULIZE R EVERY 6 HOURS NEEDED active Not Available Not Available No t Available azithromyc in 250 mg tablet TAKE 2 TABLETS ON THE FIRST DAY, THEN TAKE 1 TABLET EACH DAY ON THE NEXT 4 DAYS. 08/08 completed Not Available Not Available Not Available prednisone 20 mg tablet TAKE 3 TABLETS ON 08/29 AND 08/30. TAKE 2 TABLETS ON 08/31 AND 09/01. TAKE 1 TABLET ON 09/02 AND 09/03. 08/08 completed Not Available Not Available Not Available amitriptyl ine 50 mg tablet TAKE 1 TABLET 1 TIME EACH DAY AT BEDTIME active Not Available Not Available No t Available levothyrox ine 25 mcg tablet TAKE 1 TABLET ONCE A DAY IN THE MORNING ON AN EMPTY STOMACH active Not Available Not Available No t Available pantoprazo le 40 mg tablet,del ayed release TAKE 1 TABLET 1 TIME EACH DAY active Not Available Not Available No t Available omeprazole 20 mg capsule,de layed release TAKE 1 CAPSULE 1 TIME EACH DAY 3O MINUTES BEFORE THE MORNING MEAL 12/12 completed Not Available Not Available Not Available lisinopril 10 mg-hydroch lorothiazi de 12.5 mg tablet TAKE 1 TABLET 1 TIME EACH DAY active Not Available Not Available No t Available zolpidem 10 mg tablet TAKE 1 TABLET 1 TIME EACH DAY AT BEDTIME NEEDED active Not Available Not Available No t Available Vitamin D2 1,250 mcg (50,000 unit) capsule TAKE 1 CAPSULE 1 TIME EACH WEEK active Not Available Not Available No t Available cefdinir 300 mg capsule TAKE 1 CAPSULE EVERY 12 HOURS FOR 10 DAYS 08/08 completed Not Available Not Available Not Available fluoxetine 20 mg capsule TAKE 1 CAPSULE 1 TIME EACH DAY WITH 40 MG CAPSULE active Not Available Not Available No t Available insulin lispro (U-100) 100 unit/mL subcutaneo us pen INJECT 30 UNITS 3 TIMES EACH DAY WITH MEALS 08/08 completed Not Available Not Available Not Available Novolog FlexPen U-100 Insulin aspart 100 unit/mL (3 mL) subcutaneo us INJECT 40 UNITS UNDER THE SKIN 2 TIMES EACH DAY 08/08 completed Not Available Not Available Not Available Truetrack Test strips USE TO TEST BLOOD SUGAR UP TO 4 TIMES EACH DAY 2022 active Not Available Not Available Not Avai lable rosuvastat in 40 mg tablet TAKE 1 TABLET 1 TIME EACH DAY active Not Available Not Available No t Available bupropion HCl XL 150 mg 24 hr tablet, extended release TAKE 1 TABLET 1 TIME EACH DAY active Not Available Not Available No t Available BD Ultra-Fine Mini Pen Needle 31 gauge x 3/16 USE TO INJECT INSULIN 3 TIMES EACH DAY. 2023 active Not Available Not Available Not Avai lable pregabalin 200 mg capsule TAKE 1 CAPSULE 3 TIMES EACH DAY active Not Available Not Available No t Available pregabalin 300 mg capsule TAKE 1 CAPSULE 2 TIMES EACH DAY 08/08 completed Not Available Not Available Not Available Lantus Solostar U-100 Insulin 100 unit/mL (3 mL) subcutaneo us pen INJECT 30 UNITS 1 TIME EACH DAY active Not Available Not Available No t Available TRUEplus Lancets 33 gauge USE TO TEST BLOOD SUGAR UP TO 4 TIMES EACH DAY 2022 active Not Available Not Available Not Avai lable Trulicity 0.75 mg/0.5 mL subcutaneo us pen injector INJECT CONTENTS OF 1 SYRINGE 1 TIME EACH WEEK 08/08 completed Not Available Not Available Not Available Vraylar 1.5 mg capsule TAKE 1 CAPSULE 1 TIME EACH DAY IN THE MORNING active Not Available Not Available No t Available Dexcom G6 Sensor device USE TO CHECK BLOOD SUGAR DIRECTED active Not Available Not Available No t Available Dexcom G6 Group Chief Operator USE TO TEST BLOOD SUGAR DIRECTED active Not Available Not Available No t Available Dexcom G6 Transmitte r device USE TO CHECK BLOOD SUGAR DIRECTED active Not Available Not Available No t Available Novolin 70-30 FlexPen U-100 Insulin 100 unit/mL (70-30) subcutaneo us INJECT 30 UNITS UNDER THE SKIN 2 TIMES EACH DAY 2022 active Not Available Not Available Not Avai lable Trulicity 3 mg/0.5 mL subcutaneo us pen injector INJECT THE CONTENTS OF 1 SYRINGE 1 TIME EACH WEEK 12/12 completed dosage change Not Available Not Available Not Available Trulicity 4.5 mg/0.5 mL subcutaneo us pen injector INJECT CONTENTS OF 1 SYRINGE 1 TIME EACH WEEK 06/12 completed Not Available Not Available Not Available Ozempic 1 mg/dose (4 mg/3 mL) subcutaneo us pen injector INJECT 1 MG 1 TIME EACH WEEK active Not Available Not Available No t Available Mounjaro 2.5 mg/0.5 mL subcutaneo us pen injector Inject 2.5 mg every week by subcutan eous route. 2022 active Not Available Not Available Not Avai lable Dexcom G7 Sensor active Not Available Not Available Not Available Vitals Date Recorded Body height Body mass index (BMI) Body weight Body temperature Oxygen saturation Oxygen saturation in Arterial blood by Pulse oximetry Heart rate Systolic And Diastolic Provider Name and Address Organization Details Last Updated DateTime 3 160.02 cm 31.9 kg/m2 62575.6 3 g 97.3 [degF] 95 % 95 % 100 /min 136/80 mm[Hg] Mahogany Funk ERAN [facility] 3 10:07:00 Date Recorded Body height Body mass index (BMI) Body weight Body temperature Oxygen saturation Oxygen saturation in Arterial blood by Pulse oximetry Heart rate Systolic And Diastolic Provider Name and Address Organization Details Last Updated DateTime 3 160.02 cm 31.9 kg/m2 58307.6 3 g 97.3 [degF] 98 % 98 % 90 /min 120/80 mm[Hg] Mahogany Funk ERAN [facility] [place] 3 13:51:34 Date Recorded Body height Body mass index (BMI) Body weight Body temperature Oxygen saturation Oxygen saturation in Arterial blood by Pulse oximetry Heart rate Systolic And Diastolic Provider Name and Address Organization Details Last Updated DateTime 3 160.02 cm 30.6 kg/m2 48440.4 8 g 96.6 [degF] 94 % 94 % 103 /min 122/80 mm[Hg] Ashleyyefri Belle [facility] & [place] 3 14:05:17 Date Recorded Body height Body weight Body temperature Oxygen saturation Oxygen saturation in Arterial blood by Pulse oximetry Heart rate Systolic And Diastolic Provider Name and Address Organization Details Last Updated DateTime 3 160.02 cm 85213.5 2 g 96.9 [degF] 95 % 95 % 90 /min 130/80 mm[Hg] Mahogany BARILLAS [facility] & [place] 3 15:45:32 Date Recorded Body height Body mass index (BMI) Body weight Body temperature Oxygen saturation Oxygen saturation in Arterial blood by Pulse oximetry Heart rate Systolic And Diastolic Provider Name and Address Organization Details Last Updated DateTime 3 160.02 cm 29.8 kg/m2 11337.5 2 g 96.9 [degF] 98 % 98 % 92 /min 130/82 mm[Hg] Ashley BARILLAS [facility] & [place] 3 13:25:12 Social History Question Answer Notes LastModified by Organizat ion Details LastModified Time Tobacco Smoking Status Current Every Day Smoker Mahogany [facility] & [place] 08/08/2022 10:40:26 Do You Have An Advance Directive? No [email or web address] Information not available 06/12/2023 Are You Blind Or Do You Have Difficulty Seeing? Yes [email or web address] Information not available 06/12/2023 What Is Your Level Of Caffeine Consumption? Occasional [email or web address] Information not available 10/10/2023 What Was The Date Of Your Most Recent Tobacco Screening? 08/08/2022 [email or web address] Information not available 08/08/2022 How Much Tobacco Do You Smoke? 2 PPD [email or web address] Information not available 11/21/2022 Has Tobacco Cessation Counseling Been Provided? No [email or web address] Information not available 10/10/2023 How Many Years Have You Smoked Tobacco? 15 [email or web address] Information not available 11/21/2022 Sex: Unknown Functional Status Question Answer Note LastModified by Organizat ion Details LastModified Time Do you use any illicit or recreational drugs? Yes [email or web address] Information not available 06/12/2023 Do you or have you ever used any other forms of tobacco or nicotine? No [email or web address] Information not available 10/10/2023 What is your level of alcohol consumption? None Information not available 11/21/2022 What is your exercise level? None [email or web address] Information not available 06/12/2023 Mental Status Question Answer Note LastModified by Organization D etails LastModified Time Do you feel stressed (tense, restless, nervous, or anxious, or unable to sleep at night)? [id number] [email or web address] Information not available 06/12/2023 Family History Relationship Description Onset Age of this Age Resolved Age Notes LastModified by Organization Details LastModified Time Father No current problems or disability [email or web address] Not available 08/08 13:24:29 Mother No current problems or disability [email or web address] Not available 08/08 13:24:29 Medical History Condition Response Diabetes Y Obesity Y Vision or Eye Problems Y Arthritis Y High Cholesterol Y Psychiatric/Mental Health Condition Y Headaches Y Gynecological HistoryNo gynecological history recorded. Obstetrics History GPAL:G 0 P 0 0 0 0 Immunizations Vaccine Type Date Status Note Provider Nam e and Address Organization Details Recorded Time pneumococcal polysaccharide PPV23 0 completed Not Available [facility] 12/21/2023 00:21:28 Influenza, split virus, quadrivalent, preservative 0 completed Not Available [facility] 12/21/2023 00:21:28 Past Encounters Encounter ID Performer Location Encounter Start Date Encounter Closed Date Diagnosis/Indication Diagnosis SNOMED-CT Code Diagnosis ICD10 Code Diagnosis Note [id number] DO [facility] [address] [place] [address] 08/08/2022 10:07:52 08/08/2022 11:42:19 Type 2 diabetes mellitus 29393019 E11.42 recommende d updating patient's labs today. Her hemoglobin A1c in April was still poorly controlled 11%. Her blood sugar ranges are improving and less severe than before and I encouraged continuati on of both the G LP one and long-actin g insulin for management as well as her continuous glucose monitor. Peripheral neuropathy is stable on Lyrica. Stable on current regimen; LINDA reviewed and appropriat e. PDMP is not yet available. No new neurologic al or orthopedic concerns at this time. Medication s are refilled today as below. Plan to f/u in 1 month As below Mixed anxi ety and depressive disorder 758495578 F41.8 stable, refilled today Hypothyroidism 24371253 E03.9 updating patient's labs today Insomnia 200234636 G47.0 0 stable, see discussion above Mixed hyperlipidemia 267 418322 E78.2 updating annual cholestero l panel Therapeuti c drug monitoring assay 74418047 Z51.81 UDS from 04/25/2022 is reviewed and Lyrica was present, updating this today Gastro-eso phageal reflux disease with esophagitis 582006115 K21.00 trial of pantoprazo le today [id number] DO SANA Johnson [facility] [address] [place] [address] 11/21/2022 09:56:39 11/21/2022 10:36:37 Insomnia 559283576 G47.00 stable, see discussion above Type 2 deni sunitha mellitus 91135891 E11.42 taking 70/30 insulin 40 units has been doing this twice a day as well as 3mg of trulicityr ecommended increasing patient's Trulicity to 4.5 mg today as she is having persistent ly elevated, significan tly high sugars. We are updating her labs today and plan to follow-up in review these together in about one month. If patient blood sugars are still significan tly elevated despite G LP one and b.i.d. combinatio n insulin will discuss combinatio n of both increasing her insulin and or transition ing her to an alternativ e GLP/GIP.Ka sper is reviewed appropriat e, patient is stable on Lyrica and this is refilled today as below Seasonal a ffective disorder 206058431 F33.9 we discussed that seasonal depression symptoms can be a combinatio n of both vitamin-D deficiency as well as seasonal affective disorder. As she is currently already on fluoxetine recommende d starting her on Wellbutrin extended release which is sent in today as below. We are also updating her vitamin-D level and if this is significan tly depleted will start oral replacemen t as well Uncontroll ed type 2 diabetes mellitus 726852292 E11.65 see discussion above Breast lump 75051672 N63 .0 ordered diagnostic mammogram today for patient's follow-up [id number] Lexi Romano DO [facility] [address] [place] [address] 12/12/2022 13:45:38 12/12/2022 14:06:25 Type 2 diabetes mellitus 00448793 E11.42 recommende d transition ing patient back to once daily insulin. Recommende d that she start at 15 units daily and wait to increase this dose by 5 units until 3-4 days have passed so that she can monitor her 1st morning sugars and also gradually become accustomed to decreasing blood sugars. We did discuss that if necessary there is a combinatio n long-actin g insulin and G LP one option which may benefit her management further. Right now as she does have Trulicity available we are going to follow-up in the next 2-3 months and we do her blood work at that time and see if she would feel that she could transition to an a.m. shot with the combinatio n medication at that time Vitamin D deficiency 347 01974 E55.9 patient did have low vitamin-D and recent labs and recommende d starting weekly supplement ation which is sent in today. We will update her levels at the time of her next blood work Uncontroll ed type 2 diabetes mellitus 829390799 E11.65 see discussion abovepatie nt is currently monitoring with the [employer] continuous monitoring system and refill is sent in today for sensors [id number] DO SANA Johnson [facility] [address] [place] [phone] 03/13/2023 13:56:47 03/13/2023 14:20:20 Diabetic peripheral neuropathy 472051590 E11.40 stable on lyricaPDMP reviewed and appropriat e and this is refilled today as belowf/u in 3 months as above Type 2 deni betes mellitus 77899862 E11.42 pt is doing well on her current regimen; recommende d updating her labs todayHGB a1c from nov poorly controlled at 12%we reviewed that if her hgb a1c is still above goal today now that she has been taking her insulins regularly we will likely need to transition her to a different GLP1 and she is agreeable to thisotherw ise recommende d f/u in about 3 months or prn with other questions or concerns Insomnia 622138213 G47.0 0 stable, see discussion above Gastro-eso phageal reflux disease with esophagitis 065363298 K21.00 updating pt's vit b12 and MMA levels today Vitamin D deficiency 347 72106 E55.9 has been taking a daily over the counter supplement update her levels at this time; was persistent ly low in Nov [id number] DO [facility] [address] [place] [id number] 06/12/2023 15:36:13 06/12/2023 16:19:00 Type 2 diabetes mellitus 37092123 E11.42 HGB a1c from November 2022 poorly controlled at 12%she has not done well on 70/30 insulin regimen as she has significan tly limited financial resources and is not able to eat regularly healthy meals or regularly throughout the day and typically has a highly processed meal about once daily.Lindsay pheral neuropathy symptoms are currently managing on Lyrica and amitriptyl ine and overall stablepati ent is currently managing on a combinatio n of long and short-acti ng insulin; she does not currently have a continuous glucose monitor for further management she does continue to use weekly G LP 1 Trulicity and this does benefit her symptoms but she is still having persistent severe elevations with this type of medication recommende d updating patient's labs today. I strongly suspect that she will still have persistent ly poor control of her hemoglobin P4yqlilt the fact that she is on relatively low doses of insulin due to the fact that she is not able to eat consistent ly throughout the day recommende d transition ing her to Mounjaro and warned her that she will need to regularly to monitor her blood sugars and potentiall y decrease the amount of insulin she is taking to help prevent hypoglycem ic episodes.p lamont to follow-up in about 3 weeks and we will review her updated blood work together at that time and see how well nodule are 0 is helping her manage her symptoms and how much insulin she is still needing for further management Mixed anxi ety and depressive disorder 706923449 F41.8 persistent despite patient is currently good regimen with Wellbutrin in addition to fluoxetine 60 mg daily. Subsequent ly recommende d the addition of low-dose vraylar 1.5 mg and this is sent in today as below Hypothyroidism 68511298 E03.9 updating patient's labs today; plan to continue low-dose levothyrox ine at this time and this is refilled today as below Gastro-eso phageal reflux disease with esophagitis 801317954 K21.November vit b12 and MMA levels were well controlled , she is currently managing on pantoprazo le and this is refilled today as below Mixed hyperlipidemia 267 883703 E78.2 updating annual cholestero l panelplan to continue rosuvastat in for cardiovasc ular protection Insomnia 660695318 G47.0 0 stable, PDMP is reviewed appropriat e and this medication is refilled today Vitamin D deficiency 347 30833 E55.9 vitamin-D level was persistent ly low in Nov 2022 after patient had been taking a daily oral replacemen t. Subsequent ly we are transition ing her to a weekly replacemen t at this time Chronic ob structive pulmonary disease 43330697 J44.9 stable, refilled today as below Essential hypertension 10466414 I10 stable, refilled today as below Uncontroll ed type 2 diabetes mellitus 831302453 E11.65 see discussion abovepatie nt is currently monitoring with the [employer] continuous monitoring system and refill is sent in today for sensors [id number] MD SANA Blancas [facility] [address] [place] [place] [address] 10/10/2023 13:14:35 10/10/2023 14:00:46 Type 2 diabetes mellitus 94530134 E11.9 Insomnia 548591098 G47.0 0 Therapeuti c drug monitoring assay 66242792 Z51.81 Health Concerns Section Related Observation LastModified by Organization Detai ls LastModified Time None Recorded Concern Status LastModified by Organization Details LastModified Time None Recorded Advance Directives Directive N: Payers Insurance Date Sequence Insurance Name Policy Number Policy Lopez Covered Member ID Lopez Member ID Guarantor Name 05/30/2024 2 [facility] (MEDICAID HMO) Mirela Pa Francisco [id number] Mirela Pa Francisco 05/30/2024 1 [employer] (MEDICARE REPLACEMENT /ADVANTAGE - PPO) Mirela Pa Francisco [id number] Mirela Pa Francisco Notes Date Note Type Note Provider Name and Address Organization Details Recorded Time 3 text/html 46-year-old with past medical history of type 2 diabetes presents for follow-up. impression:long history of depression in the winter months and this is bothering her more so recently; does have a reported hx of vitamin D deficiency in years past but has not been taking any supplementationcurrently managing on fluoxetine 40mg daily And reports exacerbated symptoms despite this diabetes- sugar has been high; 300s- currently on insulin 70/30, 40 units b.i.d. and trulicity 3mg weekly- no issues with sores or skin break down on her feet; peripheral neuropathy stinging and burning is managed with Lyrica and she does need a refill on this- she does have short-acting informed available home for when her sugars are severely elevated and has been eating some of this recently as well mammography:Patient states that she is due for mammography. She does have a history of a breast lump on the left-hand side with prior biopsy with normal results but would like to have her annual mammographies screening ordered today as well Lexi Romano, [address] [place] [address],[address], [place], [address], [place] [facility] [place] 11/21/2022 16:38:09 3 text/html 47-year-old with past medical history of type 2 diabetes with peripheral neuropathy presents for follow-up on recent labs.Patient is significantly limited in her finances. She does state that prior to our last visit when her labs were drawn she had been out of her medications including her insulin for quite some time. Prior to that she had been taking 70/ 30 insulin but where her finances prevent her from eating regularly she did have issues with low blood sugars. She has since our last visit been able to restart the increased dose of Trulicity 4.5 mg weekly. She reports that her blood sugars have been improved and are currently ranging around the 200s with this medication. She also states that the once a day, long acting insulin was easier for her to manage than the b.i.d. regimen Lexi Romano, [address] [place] [address],[address], [place], [address], [place] [facility] & [place] 12/12/2022 17:21:00 3 text/html 47-year-old with past medical history of type 2 diabetes with peripheral neuropathy, vitamin-D deficiency presents for follow-upon diabetes:Patient states that she went back to Novolog (short acting 20 units) once a day with her dinner as well as Lantus in the evenings (40units) because the 70/30 to not seem to be managing her blood sugars wellAlso still doing weekly Trulicity 4.5mg; reports that this is going well, no issues with nauseaNo low sugars or symptomsHas continued to loose some weight with trulicity; lost another 6 pounds.Reports she's been much less fatigued and feels really good generallyneuropathy symptoms are stable, no issues with skin breakdown or redness insomnia:Stable on Ambien. No issues with sedation or drowsiness with medication use vitamin-D: Patient has been taking a once daily ywoq-aid-pbhnpml replacement and has noticed significant improvement with this in her fatigue and activity level Lexi Romano, [address] [place] [address],[address], [place], [address], [place] [facility] & [place] 03/13/2023 15:34:53 3 text/html 48-year-old with past medical history of type 2 diabetes with peripheral neuropathy, vitamin-D deficiency presents for follow-up. diabetes- would like to start using the dexcom G7 for monitoring- Novolog (short acting 20 units) once a day with her dinner as well as Lantus in the evenings (40units); reports she does tend to forget her medication a few times per week- previously had poorer control with more frequent highs and lows on 70/30 insulin combination- was also on GLP1 Trulicity 4.5mg but has been out of this for at least a few weeks possibly a month- No low sugars or symptoms of hyperglycemia such as polyuria or polydipsia- has lost some more weight; not exactly been trying peripheral neuropathy numbness- neuropathy symptoms are stable- no issues with skin breakdown or redness- reports that she continues to go barefoot but does check her feet regularly insomnia:Stable on Ambien. No issues with sedation or drowsiness with medication use COPD has been stable anxiety/depression is stable, patient has been managing on fluoxetine and bupropion. She reports that her symptoms have recurred and she just simply never feels happy. She has wanted there is any other medications that could assist with her management Lexi Romano, [address], [place], [address], [facility] & [place] 06/13/2023 17:11:20 3 text/html Mirela is a 47 yo Female who presents to the clinic today for evaluation. Patient has a history of type 2 diabetes. She has neuropathy from have an elevated glucose levels. Patient is currently on Lyrica and has been for the last 10 years. Patient states she does well with it she does have breakthrough pain at times. Patient was honest and states that she does smoke marijuana. Patient also has a history of insomnia. She is currently on Ambien and has been taking Ambien for 10 years. Patient states that she never tried anything else for insomnia. Patient does not want to come off of this medication. Patient has no other issues or new complaints at this time. Ashley Dietz PA-C [address], [place], [address], [place] [facility] & [place] 10/10/2023 14:30:09 OBGyn Episode No OBEpisode recorded.
== END 2025-04-02 23:59 | disposition home or self-care (01) ==
LOC: LAB.DROPOF 04-06 10:42
PROVIDERS: PCP Nurse Practitioner Family; Visit Provider Nurse Practitioner Family
DX: E11.9 Type 2 diabetes mellitus without complications (principal); I10 Essential (primary) hypertension; R74.8 Abnormal levels of other serum enzymes
CPT/HCPCS: 80053; 80061; 82043; 82150; 82306; 82570; 83036; 83690; 84443; 85025

== ENCOUNTER 2025-10-19 10:14 | Outpatient (CLI) | payer MEDICARE, MEDICAID, SELFPAY ==
[2025-10-19 17:58] LABS: Hematocrit 46.0 % (37.0-47.0); Hemoglobin 14.9 g/dL (12.2-16.2); Immature Granulocytes % 0.4 %; Mean Corpuscular HGB Conc 32.4 g/dL (31.8-35.4); Mean Corpuscular Hemoglobin 28.7 pg (27.0-31.2); Mean Corpuscular Volume 88.5 fl (81-99); Nucleated Red Blood Cells % 0 %; Platelet Count 230 K/mm3 (142-424); Red Blood Count 5.20 M/mm3 (4.20-5.40); Red Cell Distribution Width-SD 43.9 fL; White Blood Count 9.1 K/mm3 (4.8-10.8)
[2025-10-19 18:32] LABS: Alanine Aminotransferase 15 U/L (12-78); Albumin Level 4.0 g/dl (3.5-5.0); Albumin/Globulin Ratio 1.4 (1.1-1.8); Alkaline Phosphatase 221 U/L (38-126); Anion Gap 16.7 mEq/L (5-15); Aspartate Amino Transferase 17 U/L (14-36); Bilirubin,Total 0.4 mg/dl (0.2-1.3); Blood Urea Nitrogen 14 mg/dl (7-17); Calcium 9.2 mg/dl (8.4-10.2); Carbon Dioxide 22 mmol/L (22.0-30.0); Chloride 99 mmol/L (98-107); Cholesterol 237 mg/dl (140-200); Creatinine,Serum 0.60 mg/dl (0.52-1.04); Estimated Glomerular Filt Rate 105 ml/min (>60); GFR (African American) 128 ML/MIN (>60); Globulin 2.8 g/dL (1.3-3.2); HDL Cholesterol 26 mg/dl (40-60); Lipase 387 U/L (23-300); Potassium 4.7 mmoL/L (3.5-5.1); Sodium 133 mmol/L (136-145); Total Protein,Serum 6.8 g/dl (6.3-8.2)
[2025-10-19 18:42] LABS: Glucose 485 mg/dl (74-100); Triglycerides 1514 mg/dl (30-150)
[2025-10-19 18:48] LABS: 25-OH Vitamin D, Total 21.0 ng/mL (30-100)
[2025-10-19 19:03] LABS: Hemoglobin A1C 13.8 % (4.0-6.0)
[2025-10-19 19:05] LABS: Thyroid Stimulating Hormone 2.57 uIU/mL (0.465-4.68)
== END 2025-10-19 23:59 ==
LOC: LAB.DROPOF 10-21 10:15
PROVIDERS: PCP Nurse Practitioner Family; Visit Provider Nurse Practitioner Family
DX: E03.9 Hypothyroidism, unspecified (principal); E11.9 Type 2 diabetes mellitus without complications; R74.8 Abnormal levels of other serum enzymes; E55.9 Vitamin D deficiency, unspecified
CPT/HCPCS: 80053; 80061; 82043; 82306; 82570; 83036; 83690; 84443; 85025